=== PATIENT | female | born 1940 | race Caucasian/White ===

== ENCOUNTER 2017-08-22 09:12 | Emergency (ER) | payer MEDICARE, OTHER ==
[~2017-08-22] VITALS: Ht 165.1 cm; Wt 74.8 kg
[~2017-08-22 09:12] MED LIST: ACETAMINOPHEN325 M1 PO; ASPIR 8181 MG PO; CIPROFLOXACIN500 MG PO; ESTRADIOL0.5 MG PO; LEVOTHYROXINE112 MCG PO; VERAPAMIL HCL120 MG PO
[2017-08-22] MEDS ORDERED: POTASSIUM CHLO10 MEQ PO (09:31)
[2017-08-22] MEDS ORDERED: CLOPIDOGREL75 MG PO (09:32)
[2017-08-22] MEDS ORDERED: CHLORTHALIDONE25 MG PO (09:32)
[2017-08-22] MEDS ORDERED: ALLOPURINOL100 MG PO (09:33)
[2017-08-22] MEDS ORDERED: LIPITOR40 MG PO (12:27)
[2017-08-22] MEDS ORDERED: MECLIZINE HCL25 MG PO (12:27)
--- NOTE | 2017-08-22 22:15 | EKG ---
[facility] [address] [place], [place] [address] Signed Normal sinus rhythm Low voltage QRS Septal infarct , age undetermined Abnormal ECG No previous ECGs available Confirmed by JULIANN NORIEGA MD ([id number]) on 08/22/2017 10:14:54 PM Electronically Signed By: JULIANN NORIEGA MD 08/22/17 2215 PATIENT NAME: JAMEL CHRISTINE Electrocardiogram DATE OF : 38 PHYSICIAN: JULIANN NORIEGA MD REPORT #: [id number] REPORT IS CONFIDENTIAL AND NOT TO BE RELEASED WITHOUT AUTHORIZATION
== END 2017-08-22 13:01 | disposition home or self-care (01) ==
LOC: ED 09:12
DX: I67.9 Cerebrovascular disease, unspecified (principal); I10 Essential (primary) hypertension; E03.9 Hypothyroidism, unspecified; Z79.899 Other long term (current) drug therapy
CPT/HCPCS: 70450; 80053; 81001; 84484; 85025; 87077; 87088; 87186; 93005; 93010; 99284

== ENCOUNTER 2019-01-12 10:14 | Emergency (ER) | payer MEDICARE, OTHER ==
[~2019-01-12] VITALS: Ht 165.1 cm; Wt 68.0 kg
--- OUTSIDE RECORDS SUMMARY | ~2019-01-12 | XMS | Clinical Summary ---
Demographics + + + | Address | [address] | | | [address] | | | [place] [address] | + + + | Home Phone | | + + + | Preferred Language | Unknown | + + + | Marital Status | | + + + | Scientology Affiliation | Unknown | + + + | Race | Unknown | + + + | Ethnic Group | Unknown | + + + Author + + + | Author | [facility] [employer] (Historical as of | | | 11-17-18) | + + + | Organization | [facility] [employer] (Historical as of | | | 11-17-18) | + + + | Address | Unknown | + + + | Phone | Unavailable | + + + Support + + + + + | Name | Relationship | Address | Phone | + + + + + | Jamel Orona | ECON | [place], | | | | | [place] [address] | | + + + + + | Zuleyma Rizzo | ECON | | | | | | [place] | | | | | [phone] | | + + + + + Care Team Providers + +------+ + | Care Business Development Assistant Name | Role | Phone | + +------+ + | Reanna Bañuelos PA-C | PP | | + +------+ + Allergies No Known Allergies Current Medications + + +--------+---------+------+------+-------+ | Prescription | Sig. | Disp. | Refills | Star | End | Statu | | | | | | t | Date | s | | | | | | Date | | | + + +--------+---------+------+------+-------+ | levothyroxine | Take 75 mcg by mouth | | | 05 | | Activ | | (SYNTHROID) 75 MCG | daily. | | | 020 | | e | | tablet | | | | 15 | | | + + +--------+---------+------+------+-------+ | clopidogrel | Take 75 mg by mouth | | | 07 | | Activ | | (PLAVIX) 75 MG | daily. | | | 8 | | e | | tablet | | | | 15 | | | + + +--------+---------+------+------+-------+ | verapamil (VERELAN | Take by mouth | | | | | Activ | | PM) 120 MG 24 hr | nightly. | | | | | e | | capsule | | | | | | | + + +--------+---------+------+------+-------+ | colchicine 0.6 MG | Take 0.6 mg by mouth | | | | | Activ | | tablet | daily as needed. | | | | | e | + + +--------+---------+------+------+-------+ | potassium chloride | Take 1 tablet by | 60 | 11 | 04/0 | | Activ | | (K-DUR) 10 MEQ | mouth daily. | tablet | | /20 | | e | | tablet | | | | 17 | | | + + +--------+---------+------+------+-------+ | allopurinol | Take 1 tablet by | 90 | 3 | 12/2 | | Activ | | (ZYLOPRIM) 100 MG | mouth daily. | tablet | | 20 | | e | | tabletIndications: | | | | 17 | | | | CKD (chronic kidney | | | | | | | | disease), stage III | | | | | | | | (HCC), Idiopathic | | | | | | | | chronic gout of | | | | | | | | right foot without | | | | | | | | tophus | | | | | | | + + +--------+---------+------+------+-------+ | atorvastatin | | | | 10/1 | | Activ | | (LIPITOR) 40 MG | | | | 7/20 | | e | | tablet | | | | 18 | | | + + +--------+---------+------+------+-------+ | chlorthalidone | Take 1 tablet by | 90 | 3 | 12/0 | | Activ | | (HYGROTEN) 25 MG | mouth daily. | tablet | | 5/20 | | e | | tabletIndications: | | | | 18 | | | | Benign essential | | | | | | | | hypertension, Stage | | | | | | | | 3 chronic kidney | | | | | | | | disease (HCC) | | | | | | | + + +--------+---------+------+------+-------+ Active Problems + + + | Problem | Noted Date | + + + | Bilateral leg edema | 03/07/2018 | + + + | Idiopathic chronic gout of right foot | 01/08/2016 | + + + | Essential hypertension, benign | 10/30/2014 | + + + | CKD (chronic kidney disease), stage III | 10/30/2014 | + + + Resolved Problems + + + + | Problem | Noted | Resolved | | | Date | Date | + + + + | Hypokalemia | 10/31/19 | | | | 15 | 6 | + + + + Social History + +-------+ +--------+------+ | Tobacco Use | Types | Packs/Day | Years | Date | | | | | Used | | + +-------+ +--------+------+ | Never Smoker | | | | | + +-------+ +--------+------+ + + +---------+ + | Alcohol Use | Drinks/We | oz/Week | Comments | | | ek | | | + + +---------+ + | No | 0 | 0.0 | | | | Standard | | | | | drinks or | | | | | | | | | | equivalen | | | | | t | | | + + +---------+ + + + + | Sex Assigned at | Date Recorded | | | | + + + | Not on file | | + + + Last Filed Vital Signs + + + + | Vital Sign | Reading | Time Taken | + + + + | Blood Pressure | 134/74 | 03/07/2018 10:01 AM PST | + + + + | Pulse | 80 | 03/07/2018 10:01 AM PST | + + + + | Temperature | 36.4 C (97.5 F) | 08/09/2017 1:31 PM PDT | + + + + | Respiratory Rate | - | - | + + + + | Oxygen Saturation | 98% | 03/07/2018 10:01 AM PST | + + + + | Inhaled Oxygen | - | - | | Concentration | | | + + + + | Weight | 78.3 kg (172 lb 11.2 | 03/07/2018 10:01 AM PST | | | oz) | | + + + + | Height | 165.1 cm (5' 5") | 03/07/2018 10:01 AM PST | + + + + | Body Mass Index | 28.74 | 03/07/2018 10:01 AM PST | + + + + Plan of Treatment + + + + + | Health Maintenance | Due Date | Last Done | Comments | + + + + + | Vaccine: | | | | | Dtap/Tdap/Td (1 - | 9 | | | | Tdap) | | | | + + + + + | Vaccine: Zoster (1 | | | | | of 2) | 0 | | | + + + + + | DEXA SCAN SCREENING | | | | | | 5 | | | + + + + + | Vaccine: | | | | | Pneumococcal 65+ | 5 | | | | Low/Medium Risk (1 | | | | | of 2 - PCV13) | | | | + + + + + | Vaccine: Influenza | | | | | (#1) | 9 | | | + + + + + Results Not on filefrom Last 3 Months Insurance + +--------+ +------+-------+ + | Payer | Benefi | Subscriber | Type | Phone | Address | | | t Plan | ID | | | | | | / | | | | | | | Group | | | | | + +--------+ +------+-------+ + | MEDICARE | MEDICA | [id number] | | | [address] | | | RE | | | | [place] [phone] | | | IP-OP | | | | | + +--------+ +------+-------+ + | COMMERCIAL OTHER | COMMER | [id number] | | | | | | CIAL | | | | | | | GENERI | | | | | | | C PLAN | | | | | + +--------+ +------+-------+ + + +--------+ +--------+ + + | Guarantor Name | Accoun | Relation to | Date | Phone | Billing Address | | | t Type | Patient | of | | | | | | | | | | + +--------+ +--------+ + + | JAMEL ORONA | Person | Self [birth year] Home: | [address] | | | al[birth year]Fam | | [phone] | [phone] | [address] | | | [place] | | | [phone] | [place] | | | | | | | [phone] | + +--------+ +--------+ + +
--- OUTSIDE RECORDS SUMMARY | ~2019-01-12 | XMS | Clinical Summary ---
Demographics + + + | Address | [address] | | | [address] | | | [place] [address] | + + + | Home Phone | | + + + | Preferred Language | Unknown | + + + | Marital Status | | + + + | Religion Affiliation | Unknown | + + + | Race | Unknown | + + + | Ethnic Group | Unknown | + + + Author + + + | Author | [facility] [employer] (Historical as of | | | 11-17-18) | + + + | Organization | [facility] [employer] (Historical as of | | | 11-17-18) | + + + | Address | Unknown | + + + | Phone | Unavailable | + + + Support + + + + + | Name | Relationship | Address | Phone | + + + + + | Jamel Orona | ECON | [place], | | | | | [place] [address] | | + + + + + | Zuleyma Rizzo | ECON | | | | | | [place] | | | | | [phone] | | + + + + + Care Team Providers + +------+ + | Care Die Repairer Trimmer Dies Name | Role | Phone | + [...] +------+-------+ + | MEDICARE | MEDICA | [id number] | | | [address] | | | RE | | | | [place] [phone] | | | IP-OP | | | | | + +--------+ +------+-------+ + | COMMERCIAL OTHER | COMMER | [id number] | | | | | | CIAL [...] Self | [birth year] | Home: | [address] | | | al/Fam | | 1941 | [phone] | [address] | | | [place] | | | [phone] | [place] | | | | | | | [phone] | + +--------+ +--------+ + +
[~2019-01-12 10:14] MED LIST changes: +ALLOPURINOL100 MG PO; +CHLORTHALIDONE25 MG PO; +CLOPIDOGREL75 MG PO; +LIPITOR40 MG PO; +MECLIZINE HCL25 MG PO; +POTASSIUM CHLO10 MEQ PO
[2019-01-12] MEDS ORDERED: ATORVASTATIN CA40 MG PO (10:50)
== END 2019-01-12 12:45 | disposition home or self-care (01) ==
LOC: ED 10:14
DX: S93.602A Unspecified sprain of left foot, initial encounter (principal); I10 Essential (primary) hypertension; E03.9 Hypothyroidism, unspecified; I25.2 Old myocardial infarction; Z79.02 Long term (current) use of antithrombotics/antiplatelets; Z79.899 Other long term (current) drug therapy; X50.1XXA Overexertion from prolonged static or awkward postures, initial encounter
CPT/HCPCS: 73630; 99283-25

== ENCOUNTER 2020-01-14 10:32 | Emergency (ER) | payer MEDICARE, OTHER ==
[~2020-01-14] VITALS: Ht 165.1 cm; Wt 68.0 kg
[~2020-01-14 10:32] MED LIST changes: +ATORVASTATIN CA40 MG PO
== END 2020-01-14 11:45 | disposition home or self-care (01) ==
LOC: ED 10:32
DX: S92.501A Displaced unspecified fracture of right lesser toe(s), initial encounter for closed fracture (principal); W22.8XXA Striking against or struck by other objects, initial encounter; I10 Essential (primary) hypertension; E03.9 Hypothyroidism, unspecified; I25.2 Old myocardial infarction; Z79.899 Other long term (current) drug therapy
CPT/HCPCS: 73630; 99283-25

== ENCOUNTER 2020-09-20 14:51 | Emergency (ER) | payer MEDICARE ==
[~2020-09-20] VITALS: Ht 165.1 cm; Wt 72.6 kg
[2020-09-20] MEDS ORDERED: ASPIRIN81 MG PO (16:52)
== END 2020-09-20 17:03 | disposition home or self-care (01) ==
LOC: ED 14:51
DX: R21 Rash and other nonspecific skin eruption (principal); I10 Essential (primary) hypertension; E03.9 Hypothyroidism, unspecified; I25.2 Old myocardial infarction; Z79.899 Other long term (current) drug therapy
CPT/HCPCS: 99282

== ENCOUNTER 2020-10-08 18:16 | Emergency (ER) | payer MEDICARE ==
[~2020-10-08] VITALS: Ht 165.1 cm; Wt 72.6 kg
[~2020-10-08 18:16] MED LIST changes: +ASPIRIN81 MG PO
[2020-10-08] MEDS ORDERED: FUROSEMIDE20 MG PO (18:53)
[2020-10-08] MEDS ORDERED: CEPHALEXIN500 MG PO (20:19)
== END 2020-10-08 20:30 | disposition home or self-care (01) ==
LOC: ED 18:16
DX: L03.116 Cellulitis of left lower limb (principal); I10 Essential (primary) hypertension; E03.9 Hypothyroidism, unspecified; I25.2 Old myocardial infarction; I12.9 Hypertensive chronic kidney disease with stage 1 through stage 4 chronic kidney disease, or unspecified chronic kidney disease; N18.30 Chronic kidney disease, stage 3 unspecified; Z79.899 Other long term (current) drug therapy
CPT/HCPCS: 99283

== ENCOUNTER 2021-02-14 21:57 | Emergency (ER) | payer MEDICARE ==
[~2021-02-14] VITALS: Ht 165.1 cm; Wt 72.6 kg
[~2021-02-14 21:57] MED LIST changes: +CEPHALEXIN500 MG PO; +FUROSEMIDE20 MG PO
== END 2021-02-15 02:01 | disposition home or self-care (01) ==
LOC: ED 21:57
DX: R07.89 Other chest pain (principal); R22.0 Localized swelling, mass and lump, head; I25.2 Old myocardial infarction; I12.9 Hypertensive chronic kidney disease with stage 1 through stage 4 chronic kidney disease, or unspecified chronic kidney disease; N18.30 Chronic kidney disease, stage 3 unspecified; E89.0 Postprocedural hypothyroidism; Z90.710 Acquired absence of both cervix and uterus; Z90.89 Acquired absence of other organs; Z79.899 Other long term (current) drug therapy
CPT/HCPCS: 70450; 71250; 72125; 80053; 85025; 85610; 85730; 99284-25

== ENCOUNTER 2021-10-23 09:55 | Emergency (ER) | payer MEDICARE ==
[~2021-10-23] VITALS: Ht 165.1 cm; Wt 72.6 kg
--- OUTSIDE RECORDS SUMMARY | 2021-10-23 10:04 | XMS ---
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 EPatrick VISIT COUNT (12 MO.) 2 QUINTIN Khan TOTAL 2 NOTE: Visits indicate total known visits. 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
[2021-10-23] MEDS ORDERED: AMOXICILLIN500 MG PO (10:30)
[2021-10-23] MEDS ORDERED: POTASSIUM CHLO10 ME1 PO (10:38)
[2021-10-23] MEDS ORDERED: VERAPAMIL ER120 M1 PO (11:07)
--- NOTE | 2021-10-23 17:42 | EKG ---
[facility] [address] [place] [address] Signed Normal sinus rhythm Low voltage QRS Possible Inferior infarct , age undetermined Cannot rule out Anteroseptal infarct (cited on or before 22-AUG-2017) Abnormal ECG When compared with ECG of 22-AUG-2017 09:25, Questionable change in initial forces of Anterior leads Nonspecific T wave abnormality now evident in Anterolateral leads Confirmed by JULIANN NORIEGA MD ([id number]) on 10/23/2021 5:42:09 PM Electronically Signed By: JULIANN NORIEGA MD 10/23/211741 PATIENT NAME: JAMEL CHRISTINE Electrocardiogram DATE OF : 38 PHYSICIAN: JULIANN NORIEGA MD REPORT #: [id number] REPORT IS CONFIDENTIAL AND NOT TO BE RELEASED WITHOUT AUTHORIZATION
== END 2021-10-23 13:27 | disposition home or self-care (01) ==
LOC: ED 09:55
DX: T42.4X1A Poisoning by benzodiazepines, accidental (unintentional), initial encounter (principal); R41.82 Altered mental status, unspecified; E03.9 Hypothyroidism, unspecified; I25.2 Old myocardial infarction; N18.30 Chronic kidney disease, stage 3 unspecified; Z20.822 Contact with and (suspected) exposure to COVID-19; I12.9 Hypertensive chronic kidney disease with stage 1 through stage 4 chronic kidney disease, or unspecified chronic kidney disease; Z79.899 Other long term (current) drug therapy; Z79.82 Long term (current) use of aspirin
CPT/HCPCS: 36415; 70450; 71045; 80053; 81001; 84484; 85025; 85610; 85730; 87502; 93005; 93010; 99284-25; C9803; U0003

== ENCOUNTER 2021-12-09 07:00 | Day surgery (SDC) | payer MEDICARE ==
[~2021-12-09] VITALS: Ht 165.1 cm; Wt 70.2 kg
[~2021-12-09 07:00] MED LIST changes: +AMOXICILLIN500 MG PO; +POTASSIUM CHLO10 ME1 PO; +VERAPAMIL ER120 M1 PO
--- NOTE | 2021-12-09 08:35 | NUR ---
PT ALERT, ORIENTED AND SUPPORTED BY HER DAUGHTER. GAVE ENCOURAGEMENT AND BLESSING. WILL FOLLOW
--- NOTE | 2021-12-09 09:15 | NUR ---
12/09/21 0915 Sheets,Leah 0902 PT ARRIVED TO PACU, RESP EVEN AND SHALLOW. RN ENCOURAGES DEEP BREATHING OFF AND ON. PT REACTIVE TO TACTILE STIMULI AND ABLE TO FOLLOW COMMANDS. PT FALLS RIGHT BACK TO SLEEP. VSS.
--- NOTE | 2021-12-10 07:48 | OR ---
[facility] [address] [place], [place] [address] Signed DATE OF OPERATION: 12/09/2021 SURGEON: Michelle Murrieta MD PREOPERATIVE DIAGNOSIS: Change in bowel habits with increasing constipation/hard stool. POSTOPERATIVE DIAGNOSIS: Minimal internal hemorrhoids. PROCEDURE: Colonoscopy without biopsy. ESTIMATED BLOOD LOSS: None. INDICATIONS: Jamel is an 81-year-old female, generally fairly healthy. She still has good muscle mass, good functional status. Her memory is not the best. She has actually never had a colonoscopy. There is no family history of colon cancer or polyps. She told me her upper teeth were bothering her quite a bit and she could not eat well. She ended up with a change in bowel habits, a small hard dark pebble like stool. Eventually, she had all her upper teeth pulled and now has dentures. She is able to eat much better. She told me the stool has corrected itself. She had been to her primary care provider. They decided to have her come for a colonoscopy due to the change in bowel habits. Her daughter always comes to help because of Jamel's poor memory. In the office, I gave them a pamphlet on colonoscopy. We had reviewed the nature of the test. They understand there is risk including, but not limited to gas bloating, crampy abdominal pain, bleeding, perforation requiring surgery, and missed diagnosis. We also reviewed the need for IV conscious sedation. She had expressed understanding and wished to proceed. PROCEDURE NOTE: Jaeml was taken into our endoscopy suite and placed in the left lateral decubitus position. We gave her 1 mg of Versed and 50 mcg of fentanyl and she actually quit breathing without stimulation. We started our procedure. A digital rectal exam was unremarkable. She had good sphincter tone. There were no masses. No external hemorrhoids. The adult colonoscope had been introduced and advanced under direct visualization of the camera. We made our way up to 5 mg of Versed and 100 mcg of fentanyl. Without stimulation, she was not breathing and with stimulation she was awake Electronically Signed By: MICHELLE MURRIETA MD 12/10/21 0748 PATIENT NAME: JAMEL CHRISTINE OPERATIVE REPORT DATE OF : 38 REPORT #: [id number] PHYSICIAN: MICHELLE MURRIETA MD PCP: RIGOBERTO ORELLANA PAC REPORT IS CONFIDENTIAL AND NOT TO BE RELEASED WITHOUT AUTHORIZATION [facility] [address] [place] [id number] Signed and moaning and talking to us. Therefore, we asked one of our anesthesia providers to come and help us with increased monitoring sedation with propofol. We also noticed somewhat frequent PVCs. With the addition of the propofol then, she relaxed very nicely and we were able to advance the scope without resistance right up to the cecum itself. PVCs as well. Her prep was quite excellent. We could easily see the appendiceal orifice and the ileocecal valve. The scope was then slowly withdrawn. We found no pathology throughout the entire colon. There were no polyps. No diverticulosis. No AVMs. The rectum was unremarkable. Upon retroflexion of the scope, she has just small internal hemorrhoid columns. After this, the gas was suctioned out and the colonoscope removed. Jamel tolerated the procedure quite well with the addition of the propofol. RECOMMENDATIONS: Jamel can follow up as needed. MD BIRDIE Fitzgerald/[place] /[id number] cc: SILAS Stout MD Copies: RIGOBERTO ORELLANA ANDREW L MD ~ Electronically Signed By: MICHELLE MURRIETA MD 12/10/21 0748 PATIENT NAME: JAMEL CHRISTINE OPERATIVE REPORT DATE OF : 38 REPORT #: [id number] PHYSICIAN: MICHELLE MURRIETA MD PCP: RIGOBERTO ORELLANA REPORT IS CONFIDENTIAL AND NOT TO BE RELEASED WITHOUT AUTHORIZATION
== END 2021-12-09 10:17 | disposition home or self-care (01) ==
LOC: DS 07:00
PROVIDERS: ATTEND Colon & Rectal Surgery
PROC: 0DJD8ZZ Inspection of Lower Intestinal Tract, Via Natural or Artificial Opening Endoscopic (ICD-10-PCS; principal; 2021-12-09 08:15)
DX: K59.00 Constipation, unspecified (principal); K64.8 Other hemorrhoids; I12.9 Hypertensive chronic kidney disease with stage 1 through stage 4 chronic kidney disease, or unspecified chronic kidney disease; N18.30 Chronic kidney disease, stage 3 unspecified; M10.9 Gout, unspecified; I25.10 Atherosclerotic heart disease of native coronary artery without angina pectoris; Z90.710 Acquired absence of both cervix and uterus; E89.0 Postprocedural hypothyroidism; Z91.048 Other nonmedicinal substance allergy status; Z86.73 Personal history of transient ischemic attack (TIA), and cerebral infarction without residual deficits
CPT/HCPCS: 00811; 99153; G0500; J2001; J2250; J2704; J3010; J7121

== ENCOUNTER 2022-04-20 10:30 | Day surgery (SDC) | payer MEDICARE ==
[~2022-04-20] VITALS: Ht 165.1 cm; Wt 67.3 kg
[~2022-04-20 10:30] MED LIST changes: +PLAVIX75 MG PO
--- NOTE | 2022-04-20 12:30 | NUR ---
04/20/22 1230 Mary Ann Cuevas [address]PATIENT ARRIVES TO PACU AWAKE BUT DROWSY. RESTING IN PRONE POSITION, WHICH IS POSITION OF COMFORT PER PATIENT. RESP EVEN AND UNLABORED,ROOM AIR SATS 100%.DENIES PAIN OR NAUSEA.
== END 2022-04-20 13:00 | disposition home or self-care (01) ==
LOC: OPS 10:30 → DS 10:30 → OPS 12:00 → DS 12:00 → OPS 13:00
PROVIDERS: ATTEND Specialist
PROC: 079T3ZX Drainage of Bone Marrow, Percutaneous Approach, Diagnostic (ICD-10-PCS; principal; 2022-04-20 12:00)
DX: D61.818 Other pancytopenia (principal)
CPT/HCPCS: 01112; 36415; 80053; 83615; 85025; 85060; J2704; J7121

== ENCOUNTER → 2022-10-20 | Emergency (ER) | payer MEDICARE ==
[~2022-10-20] VITALS: Ht 165.1 cm; Wt 67.1 kg
--- OUTSIDE RECORDS SUMMARY | ~2022-10-20 | XMS | Continuity of Care Document ---
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 Encounters No information. Functional Status No information. Immunizations No information. Medications + + + + | date | description | facility | + + + + | 2021-10-24 00:00 | ALLOPURINOL | [facility] | + + + + | 2021-12-09 00:00 | ALLOPURINOL | [facility] | + + + + | 2022-04-26 00:00 | ALLOPURINOL | [facility] | + + + + | 2021-10-24 00:00 | CHLORTHALIDONE | [facility] | + + + + | 2021-12-09 00:00 | CHLORTHALIDONE | [facility] | + + + + | 2022-04-26 00:00 | CHLORTHALIDONE | [facility] | + + + + | 2021-10-24 00:00 | ESTRADIOL | [facility] | + + + + | 2021-12-09 00:00 | ESTRADIOL | [facility] | + + + + | 2022-04-26 00:00 | ESTRADIOL | [facility] | + + + + | 2021-10-24 00:00 | AMOXICILLIN | [facility] | + + + + | 2021-10-24 00:00 | ASPIRIN | [facility] | + + + + | 2021-12-09 00:00 | ASPIRIN | [facility] | + + + + | 2022-04-26 00:00 | ASPIRIN | [facility] | + + + + | 2020-10-08 00:00 | CEPHALEXIN | [facility] | + + + + | 2021-10-24 00:00 | CIPROFLOXACIN HCL | [facility] | + + + + | 2021-12-09 00:00 | CIPROFLOXACIN HCL | [facility] | + + + + | 2022-04-26 00:00 | CIPROFLOXACIN HCL | [facility] | + + + + | 2021-10-24 00:00 | CLOPIDOGREL BISULFATE | [facility] | + + + + | 2021-12-09 00:00 | CLOPIDOGREL BISULFATE | [facility] | + + + + | 2022-04-26 00:00 | CLOPIDOGREL BISULFATE | [facility] | + + + + | 2021-10-24 00:00 | FUROSEMIDE | [facility] | + + + + | 2021-12-09 00:00 | FUROSEMIDE | [facility] | + + + + | 2022-04-26 00:00 | FUROSEMIDE | [facility] | + + + + | 2021-10-24 00:00 | POTASSIUM CHLORIDE | [facility] | + + + + | 2021-12-09 00:00 | POTASSIUM CHLORIDE | [facility] | + + + + | 2022-04-26 00:00 | POTASSIUM CHLORIDE | [facility] | + + + + | 2021-10-24 00:00 | ACETAMINOPHEN | [facility] | + + + + | 2021-12-09 00:00 | ACETAMINOPHEN | [facility] | + + + + | 2022-04-26 00:00 | ACETAMINOPHEN | [facility] | + + + + | 2021-10-24 00:00 | ASPIRIN | [facility] | + + + + | 2021-12-09 00:00 | ASPIRIN | [facility] | + + + + | 2022-04-26 00:00 | ASPIRIN | [facility] | + + + + | 2021-10-24 00:00 | ATORVASTATIN CALCIUM | [facility] | + + + + | 2021-12-09 00:00 | ATORVASTATIN CALCIUM | [facility] | + + + + | 2022-04-26 00:00 | ATORVASTATIN CALCIUM | [facility] | + + + + | 2017-08-22 00:00 | ATORVASTATIN | [facility] | + + + + | 2021-10-24 00:00 | POTASSIUM CHLORIDE | [facility] | + + + + | 2021-12-09 00:00 | POTASSIUM CHLORIDE | [facility] | + + + + | 2021-10-24 00:00 | VERAPAMIL HCL | [facility] | + + + + | 2021-12-09 00:00 | VERAPAMIL HCL | [facility] | + + + + | 2021-10-24 00:00 | LEVOTHYROXINE SODIUM | [facility] | + + + + | 2021-12-09 00:00 | LEVOTHYROXINE SODIUM | [facility] | + + + + | 2022-04-26 00:00 | LEVOTHYROXINE SODIUM | [facility] | + + + + | 2017-08-22 00:00 | MECLIZINE HCL | [facility] | + + + + Problems + + + + | date | description | facility | + + + + | 2017-08-22 00:00 | Cerebrovascular disease | [facility] | + + + + | 2017-08-22 00:00 | Vertigo | [facility] | + + + + | 2020-01-14 00:00 | Fracture of phalanx of toe | [facility] | | | | | + + + + | 2020-09-20 00:00 | Rash of both feet | [facility] | + + + + | 2020-10-08 00:00 | Cellulitis of left foot | [facility] | + + + + | 2021-02-15 00:00 | Left-sided chest wall pain | [facility] | | | | | + + + + | 2021-02-15 00:00 | Fall | [facility] | + + + + | 2021-10-23 00:00 | Pre-syncope | [facility] | + + + + | 2021-10-23 00:00 | Accidental drug ingestion | [facility] | + + + + Procedures + + + + | date | description | facility | + + + + | 2022-04-20 00:00 | DRAINAGE OF BONE MARROW, | [facility] | | | PERCUTANEOUS APPROACH, | | | | DIAGNOSTIC | | + + + + | 2021-12-09 00:00 | Colonoscopy | [facility] | + + + + | 2021-12-09 00:00 | Colonoscopy | [facility] | + + + + Results/Labs +--------+--------+ +---------+--------+---------+ | test | date | facility | value | unit | notes | +--------+--------+ +---------+--------+---------+ + + | Result panel 1 | + + + + + + + + + | | 2021-10-23 | [facility] | NEGATIVE | (missing) | (missing) | | [facility]unavailable [facility]:20 [facility] | | | + + + + + + + + + | Result panel 2 | + + + + + + + + + | | 2021-10-23 | [facility] | NEGATIVE | (missing) | (missing) | | (unavailable | 10:20 [facility] | | | | + + + + + + + + + | Result panel 3 | + + + + + + + + + | | 2021-10-23 | [facility] | NEGATIVE | (missing) | (missing) | | (unavailable | 10:20 [facility] | | | | + + + + + + + + + | Result panel 4 | + + + + + + + + + | | 2021-10-23 | [facility] | NEGATIVE | (missing) | (missing) | | (unavailable [facility] 10:20 [facility] | | | + + + + + + + + + | Result panel 5 | + + + + + +-------+ + + | | 2021-10-23 | [facility] | 2.8 | (missing) | (missing) | | (unavailable | 10:20 [facility] | | | + + + +-------+ + + + + | Result panel 6 | + + + + + +--------+ + + | | 2021-10-23 | [facility] | 3.72 | (missing) | (missing) | | (unavailable | 10:20 [facility] | | | + + + +--------+ + + + + | Result panel 7 | + + + + + +--------+ + + | | 2021-10-23 | [facility] | 11.3 | (missing) | (missing) | | (unavailable | 10:20 [facility] | | | + + + +--------+ + + + + | Result panel 8 | + + + + + +--------+ + + | | 2021-10-23 | [facility] | 34.3 | (missing) | (missing) | | (unavailable | 10:20 [facility] | | | + + + +--------+ + + + + | Result panel 9 | + + + + + +--------+ + + | | 2021-10-23 | [facility] | 92.2 | (missing) | (missing) | | (unavailable | 10:20 [facility] | | | + + + +--------+ + + + + | Result panel 10 | + + + + + +--------+ + + | | 2021-10-23 | [facility] | 30.3 | (missing) | (missing) | | (unavailable | 10:20 [facility] | | | + + + +--------+ + + + + | Result panel 11 | + + + + + +--------+ + + | | 2021-10-23 | [facility] | 32.9 | (missing) | (missing) | | (unavailable [facility] 10:20 [facility] | | | + + + +--------+ + + + + | Result panel 12 | + + + + + +--------+ + + | | 2021-10-23 | [facility] | 15.7 | (missing) | (missing) | | (unavailable | 10:20 [facility] | | | + + + +--------+ + + + + | Result panel 13 | + + + + + +------+ + + | | 2021-10-23 | [facility] | 63 | (missing) | (missing) | | (unavailable | 10:20 [facility] | | | + + + +------+ + + + + | Result panel 14 | + + + + + +--------+ + + | | 2021-10-23 | [facility] | 41.5 | (missing) | (missing) | | (unavailable | 10:20 [facility] | | | + + + +--------+ + + + + | Result panel 15 | + + + + + +--------+ + + | | 2021-10-23 | [facility] | 28.0 | (missing) | (missing) | | (unavailable | 10:20 [facility] | | | + + + +--------+ + + + + | Result panel 16 | + + + + + +--------+ + + | | 2021-10-23 | [facility] | 28.6 | (missing) | (missing) | | (unavailable | 10:20 [facility] | | | + + + +--------+ + + + + | Result panel 17 | + + + + + +-------+ + + | | 2021-10-23 | [facility] | 0.8 | (missing) | (missing) | | (unavailable | 10:20 [facility] | | | + + + +-------+ + + + + | Result panel 18 | + + + + + +-------+ + + | | 2021-10-23 | [facility] | 1.1 | (missing) | (missing) | | (unavailable | 10:20 [facility] | | | + + + +-------+ + + + + | Result panel 19 | + + + + + +--------+ + + | | 2021-10-23 | [facility] | 13.0 | (missing) | (missing) | | (unavailable | 10:20 [facility] | | | + + + +--------+ + + + + | Result panel 20 | + + + + + +--------+ + + | | 2021-10-23 | [facility] | 1.00 | (missing) | (missing) | | (unavailable | 10:20 [facility] | | | + + + +--------+ + + + + | Result panel 21 | + + + + + +--------+ + + | | 2021-10-23 | [facility] | 29.4 | (missing) | (missing) | | (unavailable | 10:20 [facility] | | | + + + +--------+ + + + + | Result panel 22 | + + + + + +------+---------+ + | | 2021-10-23 | [facility] | 83 | mg/dL | (missing) | | (unavailable | 10:20 [facility] | | | + + + +------+---------+ + + + | Result panel 23 | + + + + + +------+---------+ + | | 2021-10-23 | [facility] | 20 | mg/dL | (missing) | | (unavailable | 10:20 [facility] | | | + + + +------+---------+ + + + | Result panel 24 | + + + + + +--------+---------+ + | | 2021-10-23 | [facility] | 1.33 | mg/dL | (missing) | | (unavailable | 10:20 [facility] | | | + + + +--------+---------+ + + + | Result panel 25 | + + + + + +------+ + + | | 2021-10-23 | [facility] | 40 | (missing) | (missing) | | (unavailable | 10:20 [facility] | | | + + + +------+ + + + + | Result panel 26 | + + + + + +---------+ + + | | 2021-10-23 | [facility] | 15.03 | (missing) | (missing) | | (unavailable | 10:20 [facility] | | | + + + +---------+ + + + + | Result panel 27 | + + + + + +-------+ + + | | 2021-10-23 | [facility] | 145 | (missing) | (missing) | | (unavailable | 10:20 [facility] | | | + + + +-------+ + + + + | Result panel 28 | + + + + + +-------+ + + | | 2021-10-23 | [facility] | 3.8 | (missing) | (missing) | | (unavailable | 10:20 [facility] | | | + + + +-------+ + + + + | Result panel 29 | + + + + + +-------+ + + | | 2021-10-23 | [facility] | 106 | (missing) | (missing) | | (unavailable | 10:20 [facility] | | | + + + +-------+ + + + + | Result panel 30 | + + + + + +------+ + + | | 2021-10-23 | [facility] | 28 | (missing) | (missing) | | (unavailable | 10:20 [facility] | | | + + + +------+ + + + + | Result panel 31 | + + + + + +--------+ + + | | 2021-10-23 | [facility] | 14.8 | (missing) | (missing) | | (unavailable | 10:20 [facility] | | | + + + +--------+ + + + + | Result panel 32 | + + + + + +-------+---------+ + | | 2021-10-23 | [facility] | 8.5 | mg/dL | (missing) | | (unavailable | 10:20 [facility] | | | + + + +-------+---------+ + + + | Result panel 33 | + + + + + +-------+ + + | | 2021-10-23 | [facility] | 6.4 | (missing) | (missing) | | (unavailable | 10:20 [facility] | | | + + + +-------+ + + + + | Result panel 34 | + + + + + +-------+ + + | | 2021-10-23 | [facility] | 3.4 | (missing) | (missing) | | (unavailable | 10:20 [facility] | | | + + + +-------+ + + + + | Result panel 35 | + + + + + +-------+ + + | | 2021-10-23 | [facility] | 3.0 | (missing) | (missing) | | (unavailable | 10:20 [facility] | | | + + + +-------+ + + + + | Result panel 36 | + + + + + +--------+ + + | | 2021-10-23 | [facility] | 1.13 | (missing) | (missing) | | (unavailable | 10:20 [facility] | | | + + + +--------+ + + + + | Result panel 37 | + + + + + +-------+ + + | | 2021-10-23 | [facility] | 0.6 | (missing) | (missing) | | (unavailable | 10:20 [facility] | | | + + + +-------+ + + + + | Result panel 38 | + + + + + +------+ + + | | 2021-10-23 | [facility] | 19 | (missing) | (missing) | | (unavailable | 10:20 [facility] | | | + + + +------+ + + + + | Result panel 39 | + + + + + +------+ + + | | 2021-10-23 | [facility] | 12 | (missing) | (missing) | | (unavailable | 10:20 [facility] | | | + + + +------+ + + + + | Result panel 40 | + + + + + +------+ + + | | 2021-10-23 | [facility] | 82 | (missing) | (missing) | | (unavailable | 10:20 [facility] | | | + + + +------+ + + + + | Result panel 41 | + + + + + +--------+ + + | | 2021-10-23 | [facility] | 15.8 | (missing) | (missing) | | (unavailable | 10:20 [facility] | | | + + + +--------+ + + + + | Result panel 42 | + + + + + + + + + | | 2021-10-23 | [facility] | NEGATIVE | (missing) | (missing) | | (unavailable | 11:10 [facility] | | | + + + + + + + + + | Result panel 43 | + + + + + + + + + | | 2021-10-23 | [facility] | NEGATIVE | (missing) | (missing) | | (unavailable | 11:10 [facility] | | | + + + + + + + + + | Result panel 44 | + + + + + + + + + | | 2021-10-23 | [facility] | NEGATIVE | (missing) | (missing) | | (unavailable | 11:10 [facility] | | | + + + + + + + + + | Result panel 45 | + + + + + + + + + | | 2021-10-23 | [facility] | NEGATIVE | (missing) | (missing) | | (unavailable | 11:10 [facility] | | | + + + + + + + + + | Result panel 46 | + + + + + + + + + | | 2021-10-23 | [facility] | YELLOW | (missing) | (missing) | | (unavailable | 11:10 [facility] | | | + + + + + + + + + | Result panel 47 | + + + + + +---------+ + + | | 2021-10-23 | [facility] | CLEAR | (missing) | (missing) | | (unavailable | 11:10 [facility] | | | + + + +---------+ + + + + | Result panel 48 | + + + + + + + + + | | 2021-10-23 | [facility] | NEGATIVE | (missing) | (missing) | | (unavailable | 11:10 [facility] | | | + + + + + + + + + | Result panel 49 | + + + + + + + + + | | 2021-10-23 | [facility] | NEGATIVE | (missing) | (missing) | | (unavailable | 11:10 [facility] | | | + + + + + + + + + | Result panel 50 | + + + + + + + + + | | 2021-10-23 | [facility] | NEGATIVE | (missing) | (missing) | | (unavailable | 11:10 [facility] | | | + + + + + + + + + | Result panel 51 | + + + + + +---------+ + + | | 2021-10-23 | [facility] | 1.010 | (missing) | (missing) | | (unavailable | 11:10 [facility] | | | + + + +---------+ + + + + | Result panel 52 | + + + + + +---------+ + + | | 2021-10-23 | [facility] | SMALL | (missing) | (missing) | | (unavailable | 11:10 [facility] | | | + + + +---------+ + + + + | Result panel 53 | + + + + + +-------+ + + | | 2021-10-23 | [facility] | 7.5 | (missing) | (missing) | | (unavailable | 11:10 [facility] | | | + + + +-------+ + + + + | Result panel 54 | + + + + + + + + + | | 2021-10-23 | [facility] | NEGATIVE | (missing) | (missing) | | (unavailable | 11:10 [facility] | | | + + + + + + + + + | Result panel 55 | + + + + + + + + + | | 2021-10-23 | [facility] | NORMAL | (missing) | (missing) | | (unavailable | 11:10 [facility] | | | + + + + + + + + + | Result panel 56 | + + + + + + + + + | | 2021-10-23 | [facility] | NEGATIVE | (missing) | (missing) | | (unavailable | 11:10 [facility] | | | + + + + + + + + + | Result panel 57 | + + + + + + + + + | | 2021-10-23 | [facility] | NEGATIVE | (missing) | (missing) | | (unavailable | 11:10 [facility] | | | + + + + + + + + + | Result panel 58 | + + + + + + + + + | | 2021-10-23 | [facility] | NEGATIVE | (missing) | (missing) | | (unavailable | 11:10 [facility] | | | + + + + + + + + + | Result panel 59 | + + + + + + + + + | | 2021-10-23 | [facility] | NEGATIVE | (missing) | (missing) | | (unavailable | 11:10 [facility] | | | + + + + + + + + + | Result panel 60 | + + + + + + + + + | | 2021-10-23 | [facility] | NEGATIVE | (missing) | (missing) | | (unavailable | 11:10 [facility] | | | + + + + + + + + + | Result panel 61 | + + + + + + + + + | | 2021-10-23 | [facility] | NEGATIVE | (missing) | (missing) | | (unavailable | 11:10 [facility] | | | + + + + + + + + + | Result panel 62 | + + + + + + + + + | | 2021-10-23 | [facility] | NEGATIVE | (missing) | (missing) | | (unavailable | 11:10 [facility] | | | + + + + + + + + + | Result panel 63 | + + + + + + + + + | | 2021-10-23 | [facility] | NEGATIVE | (missing) | (missing) | | (unavailable | 11:10 [facility] | | | + + + + + + + + + | Result panel 64 | + + + + + + + + + | | 2021-10-23 | [facility] | NEGATIVE | (missing) | (missing) | | (unavailable | 11:10 [facility] | | | + + + + + + + + + | Result panel 65 | + + + + + + + + + | | 2021-10-23 | [facility] | NEGATIVE | (missing) | (missing) | | (unavailable | 11:10 [facility] | | | + + + + + + + + + | Result panel 66 | + + + + + + + + + | | 2021-10-23 | [facility] | NEGATIVE | (missing) | (missing) | | (unavailable | 11:10 [facility] | | | + + + + + + + + + | Result panel 67 | + + + + + + + + + | | 2021-12-07 | [facility] | NEGATIVE | (missing) | (missing) | | (unavailable | 08:05 [facility] | | | + + + + + + + + + | Result panel 68 | + + + + + +-------+ + + | | 2022-04-20 | [facility] | 2.9 | (missing) | (missing) | | (unavailable | 10:55:08 [facility] | | | + + + +-------+ + + + + | Result panel 69 | + + + + + +------+ + + | | 2022-04-20 | [facility] | 52 | (missing) | (missing) | | (unavailable | 10:55:08 [facility] | | | + + + +------+ + + + + | Result panel 70 | + + + + + +--------+ + + | | 2022-04-20 | [facility] | 42.6 | (missing) | (missing) | | (unavailable | 10:55:08 [facility] | | | + + + +--------+ + + + + | Result panel 71 | + + + + + +--------+ + + | | 2022-04-20 | [facility] | 34.0 | (missing) | (missing) | | (unavailable | 10:55:08 [facility] | | | + + + +--------+ + + + + | Result panel 72 | + + + + + +--------+ + + | | 2022-04-20 | [facility] | 22.2 | (missing) | (missing) | | (unavailable | 10:55:08 [facility] | | | + + + +--------+ + + + + | Result panel 73 | + + + + + +-------+ + + | | 2022-04-20 | [facility] | 0.3 | (missing) | (missing) | | (unavailable | 10:55:08 [facility] | | | + + + +-------+ + + + + | Result panel 74 | + + + + + +-------+ + + | | 2022-04-20 | [facility] | 0.9 | (missing) | (missing) | | (unavailable | 10:55:08 [facility] | | | + + + +-------+ + + + + | Result panel 75 | + + + + + +------+---------+ + | | 2022-04-20 | [facility] | 94 | mg/dL | (missing) | | (unavailable | 10:55:08 [facility] | | | + + + +------+---------+ + + + | Result panel 76 | + + + + + +------+---------+ + | | 2022-04-20 | [facility] | 31 | mg/dL | (missing) | | (unavailable | 10:55:08 [facility] | | | + + + +------+---------+ + + + | Result panel 77 | + + + + + +--------+---------+ + | | 2022-04-20 | [facility] | 1.37 | mg/dL | (missing) | | (unavailable | 10:55:08 [facility] | | | + + + +--------+---------+ + + + | Result panel 78 | + + + + + +------+ + + | | 2022-04-20 | [facility] | 39 | (missing) | (missing) | | (unavailable | 10:55:08 [facility] | | | + + + +------+ + + + + | Result panel 79 | + + + + + + + + + | | 2022-04-20 | [facility] | SEE COMMENT | (missing) | (missing) | | (unavailable | 10:55:08 [facility] | | | + + + + + + + + + | Result panel 80 | + + + + + +---------+ + + | | 2022-04-20 | [facility] | 22.62 | (missing) | (missing) | | (unavailable | 10:55:08 [facility] | | | + + + +---------+ + + + + | Result panel 81 | + + + + + +-------+ + + | | 2022-04-20 | [facility] | 143 | (missing) | (missing) | | (unavailable | 10:55:08 [facility] | | | + + + +-------+ + + + + | Result panel 82 | + + + + + +-------+ + + | | 2022-04-20 | [facility] | 3.4 | (missing) | (missing) | | (unavailable | 10:55:08 [facility] | | | + + + +-------+ + + + + | Result panel 83 | + + + + + +-------+ + + | | 2022-04-20 | [facility] | 107 | (missing) | (missing) | | (unavailable | 10:55:08 [facility] | | | + + + +-------+ + + + + | Result panel 84 | + + + + + +------+ + + | | 2022-04-20 | [facility] | 28 | (missing) | (missing) | | (unavailable | 10:55:08 [facility] | | | + + + +------+ + + + + | Result panel 85 | + + + + + +--------+ + + | | 2022-04-20 | [facility] | 11.4 | (missing) | (missing) | | (unavailable | 10:55:08 [facility] | | | | + + + +--------+ + + + + | Result panel 86 | + + + + + +-------+---------+ + | | 2022-04-20 | [facility] | 9.3 | mg/dL | (missing) | | (unavailable | 10:55:08 [facility] | | | | + + + +-------+---------+ + + + | Result panel 87 | + + + + + +-------+ + + | | 2022-04-20 | [facility] | 7.2 | (missing) | (missing) | | (unavailable | 10:55:08 [facility] | | | | + + + +-------+ + + + + | Result panel 88 | + + + + + +-------+ + + | | 2022-04-20 | [facility] | 4.1 | (missing) | (missing) | | (unavailable | 10:55:08 [facility] | | | | + + + +-------+ + + + + | Result panel 89 | + + + + + +-------+ + + | | 2022-04-20 | [facility] | 3.1 | (missing) | (missing) | | (unavailable | 10:55:08 [facility] | | | | + + + +-------+ + + + + | Result panel 90 | + + + + + +--------+ + + | | 2022-04-20 | [facility] | 3.89 | (missing) | (missing) | | (unavailable | 10:55:08 [facility] | | | | + + + +--------+ + + + + | Result panel 91 | + + + + + +--------+ + + | | 2022-04-20 | [facility] | 1.32 | (missing) | (missing) | | (unavailable | 10:55:08 [facility] | | | | + + + +--------+ + + + + | Result panel 92 | + + + + + +-------+ + + | | 2022-04-20 | [facility] | 0.8 | (missing) | (missing) | | (unavailable | 10:55:08 [facility] | | | | + + + +-------+ + + + + | Result panel 93 | + + + + + +------+ + + | | 2022-04-20 | [facility] | 16 | (missing) | (missing) | | (unavailable | 10:55:08 [facility] | | | | + + + +------+ + + + + | Result panel 94 | + + + + + +------+ + + | | 2022-04-20 | [facility] | 15 | (missing) | (missing) | | (unavailable | 10:55:08 [facility] | | | | + + + +------+ + + + + | Result panel 95 | + + + + + +------+ + + | | 2022-04-20 | [facility] | 82 | (missing) | (missing) | | (unavailable | 10:55:08 [facility] | | | | + + + +------+ + + + + | Result panel 96 | + + + + + +-------+ + + | | 2022-04-20 | [facility] | 196 | (missing) | (missing) | | (unavailable | 10:55:08 | [facility] | | | | + + + +-------+ + + + + | Result panel 97 | + + + + + + + + + | | 2022-04-20 | [facility] | SEE SCANNED | (missing) | (missing) | | (unavailable | 10:55:08 | [facility] | | [facility] ) | | [facility] | | | | + + + + + + + + + | Result panel 98 | + + + + + + + + + | | 2022-04-20 | [facility] | SEE SCANNED | (missing) | (missing) | | (unavailable | 10:55:08 | [facility] ) | | [facility] | | | | + + + + + + + + + | Result panel 99 | + + + + + + + + + | | 2022-04-20 | [facility] | SEE SCANNED | (missing) | (missing) | | (unavailable | 10:55:08 | [facility] | | [facility] | | | | + + + + + + + + + | Result panel 100 | + + + + + + + + + | | 2022-04-20 | [facility] | SEE SCANNED | (missing) | (missing) | | (unavailable | 10:55:08 | [facility] | | [facility] | | | | + + + + + + + + + | Result panel 101 | + + + + + +--------+ + + | | 2022-04-20 | [facility] | 11.5 | (missing) | (missing) | | (unavailable | 10:55:08 | [facility] | [facility] | | | | + + + +--------+ + + + + | Result panel 102 | + + + + + + + + + | | 2022-04-20 | [facility] | SEE SCANNED | (missing) | (missing) | | (unavailable | 10:55:08 | [facility] | | | | + + + + + + + + + | Result panel 103 | + + + + + + + + + | | 2022-04-20 | [facility] | SEE SCANNED | (missing) | (missing) | | (unavailable | 10:55:08 | [facility] | | [facility] | | | | + + + + + + + + + | Result panel 104 | + + + + + +--------+ + + | | 2022-04-20 | [facility] | 35.9 | (missing) | (missing) | | (unavailable | 10:55:08 | [facility] | | | | + + + +--------+ + + + + | Result panel 105 | + + + + + +--------+ + + | | 2022-04-20 | [facility] | 92.1 | (missing) | (missing) | | (unavailable | 10:55:08 | [facility] | | | | + + + +--------+ + + + + | Result panel 106 | + + + + + +--------+ + + | | 2022-04-20 | [facility] | 29.6 | (missing) | (missing) | | (unavailable | 10:55:08 | [facility] | | | | + + + +--------+ + + + + | Result panel 107 | + + + + + +--------+ + + | | 2022-04-20 | [facility] | 32.1 | (missing) | (missing) | | (unavailable | 10:55:08 | [facility] | | | | + + + +--------+ + + + + | Result panel 108 | + + + + + +--------+ + + | | 2022-04-20 | [facility] | 15.2 | (missing) | (missing) | | (unavailable | 10:55:08 | [facility] | | | | + + + +--------+ + + Social History No information. Vital Signs + + + +---------+ | date | measurement | value | units | + + + +---------+ | 2021-10-23 00:00 | BMI | 26.6 | kg/m2 | + + + +---------+ | 2021-10-23 00:00 | BP_diastolic | 66 | mmHg | + + + +---------+ | 2021-10-23 00:00 | BP_systolic | 154 | mmHg | + + + +---------+ | 2021-10-23 00:00 | heart_rate | 56 | /min | + + + +---------+ | 2021-10-23 00:00 | height_metric | 165.1 | cm | + + + +---------+ | 2021-10-23 00:00 | height_standard | 65 | in | + + + +---------+ | 2021-10-23 00:00 | o2_saturation | 99 | % | + + + +---------+ | 2021-10-23 00:00 | respiration_rate | 17 | /min | + + + +---------+ | 2021-10-23 00:00 | temperature_metric | 36.56 | C | | | | | | + + + +---------+ | 2021-10-23 00:00 | | 97.8 | F | | | temperature_standar | | | | | d | | | + + + +---------+ | 2021-10-23 00:00 | weight_metric | 72.57 | kg | + + + +---------+ | 2021-10-23 00:00 | weight_standard | 159.99 | lb | + + + +---------+ | 2021-10-23 00:00 | weight_standard | 160 | lb | + + + +---------+ | 2021-12-08 00:00 | BMI | 25.8 | kg/m2 | + + + +---------+ | 2021-12-08 00:00 | height_metric | 165.1 | cm | + + + +---------+ | 2021-12-08 00:00 | height_standard | 65 | in | + + + +---------+ | 2021-12-08 00:00 | weight_metric | 70.2 | kg | + + + +---------+ | 2021-12-08 00:00 | weight_standard | 154.76 | lb | + + + +---------+ | 2021-12-09 00:00 | BP_diastolic | 79 | mmHg | + + + +---------+ | 2021-12-09 00:00 | BP_systolic | 156 | mmHg | + + + +---------+ | 2021-12-09 00:00 | heart_rate | 70 | /min | + + + +---------+ | 2021-12-09 00:00 | o2_saturation | 96 | % | + + + +---------+ | 2021-12-09 00:00 | respiration_rate | 16 | /min | + + + +---------+ | 2021-12-09 00:00 | temperature_metric | 36.5 | C | | | | | | + + + +---------+ | 2021-12-09 00:00 | | 97.7 | F | | | temperature_standar | | | | | d | | | + + + +---------+ | 2022-04-13 00:00 | BMI | 24.7 | kg/m2 | + + + +---------+ | 2022-04-13 00:00 | height_metric | 165.1 | cm | + + + +---------+ | 2022-04-13 00:00 | height_standard | 65 | in | + + + +---------+ | 2022-04-13 00:00 | weight_metric | 67.27 | kg | + + + +---------+ | 2022-04-13 00:00 | weight_standard | 148.3 | lb | + + + +---------+ | 2022-04-20 00:00 | BP_diastolic | 79 | mmHg | + + + +---------+ | 2022-04-20 00:00 | BP_systolic | 157 | mmHg | + + + +---------+ | 2022-04-20 00:00 | heart_rate | 73 | /min | + + + +---------+ | 2022-04-20 00:00 | o2_saturation | 100 | % | + + + +---------+ | 2022-04-20 00:00 | respiration_rate | 16 | /min | + + + +---------+ | 2022-04-20 00:00 | temperature_metric | 36.94 | C | | | | | | + + + +---------+ | 2022-04-20 00:00 | | 98.5 | F | | | temperature_standar | | | | | d | | | + + + +---------+"
--- OUTSIDE RECORDS SUMMARY | ~2022-10-20 | XMS | Continuity of Care Document ---
Demographics + + + | Address | [address] | | | [place] [address] | + + + | Preferred Language | Unknown | + + + | Marital Status | | + + + | Yazidi Affiliation | Unknown | + + + | Race | White | + + + | Ethnic Group | Not or | + + + Author + + + | Author | [facility] | + + + | Organization | [facility] | + + + | Address | [address] | | | [place] [address] | + + + | Phone | | + + + Care Team Providers + + + + | [facility] Gl[employer] Turner And Former Automatic Name | Role | Phone | + + + + Unavailable | Unavailable | + + + + Unavailable | Unavailable | + + + + Allergies No information. Encounters No information. Functional Status No information. Immunizations No information. Medications + + + + | date | description | facility | + + + + | 2021-10-24 00:00 | ALLOPURINOL | [facility] | + + + + | 2021-12-09 00:00 | ALLOPURINOL | [facility] | + + + + | 2022-04-26 00:00 | ALLOPURINOL | [facility] | + + + + | 2021-10-24 00:00 | CHLORTHALIDONE | [facility] | + + + + | 2021-12-09 00:00 | CHLORTHALIDONE | [facility] | + + + + | 2022-04-26 00:00 | CHLORTHALIDONE | [facility] | + + + + | 2021-10-24 00:00 | ESTRADIOL | [facility] | + + + + | 2021-12-09 00:00 | ESTRADIOL | [facility] | + + + + | 2022-04-26 00:00 | ESTRADIOL | [facility] | + + + + | 2021-10-24 00:00 | AMOXICILLIN | [facility] | + + + + | 2021-10-24 00:00 | ASPIRIN | [facility] | + + + + | 2021-12-09 00:00 | ASPIRIN | [facility] | + + + + | 2022-04-26 00:00 | ASPIRIN | [facility] | + + + + | 2020-10-08 00:00 | CEPHALEXIN | [facility] | + + + + | 2021-10-24 00:00 | CIPROFLOXACIN HCL | [facility] | + + + + | 2021-12-09 00:00 | CIPROFLOXACIN HCL | [facility] | + + + + | 2022-04-26 00:00 | CIPROFLOXACIN HCL | [facility] | + + + + | 2021-10-24 00:00 | CLOPIDOGREL BISULFATE | [facility] | + + + + | 2021-12-09 00:00 | CLOPIDOGREL BISULFATE | [facility] | + + + + | 2022-04-26 00:00 | CLOPIDOGREL BISULFATE | [facility] | + + + + | 2021-10-24 00:00 | FUROSEMIDE | [facility] | + + + + | 2021-12-09 00:00 | FUROSEMIDE | [facility] | + + + + | 2022-04-26 00:00 | FUROSEMIDE | [facility] | + + + + | 2021-10-24 00:00 | POTASSIUM CHLORIDE | [facility] | + + + + | 2021-12-09 00:00 | POTASSIUM CHLORIDE | [facility] | + + + + | 2022-04-26 00:00 | POTASSIUM CHLORIDE | [facility] | + + + + | 2021-10-24 00:00 | ACETAMINOPHEN | [facility] | + + + + | 2021-12-09 00:00 | ACETAMINOPHEN | [facility] | + + + + | 2022-04-26 00:00 | ACETAMINOPHEN | [facility] | + + + + | 2021-10-24 00:00 | ASPIRIN | [facility] | + + + + | 2021-12-09 00:00 | ASPIRIN | [facility] | + + + + | 2022-04-26 00:00 | ASPIRIN | [facility] | + + + + | 2021-10-24 00:00 | ATORVASTATIN CALCIUM | [facility] | + + + + | 2021-12-09 00:00 | ATORVASTATIN CALCIUM | [facility] | + + + + | 2022-04-26 00:00 | ATORVASTATIN CALCIUM | [facility] | + + + + | 2017-08-22 00:00 | ATORVASTATIN | [facility] | + + + + | 2021-10-24 00:00 | POTASSIUM CHLORIDE | [facility] | + + + + | 2021-12-09 00:00 | POTASSIUM CHLORIDE | [facility] | + + + + | 2021-10-24 00:00 | VERAPAMIL HCL | [facility] | + + + + | 2021-12-09 00:00 | VERAPAMIL HCL | [facility] | + + + + | 2021-10-24 00:00 | LEVOTHYROXINE SODIUM | [facility] | + + + + | 2021-12-09 00:00 | LEVOTHYROXINE SODIUM | [facility] | + + + + | 2022-04-26 00:00 | LEVOTHYROXINE SODIUM | [facility] | + + + + | 2017-08-22 00:00 | MECLIZINE HCL | [facility] | + + + + Problems + + + + | date | description | facility | + + + + | 2017-08-22 00:00 | Cerebrovascular disease | [facility] | + + + + | 2017-08-22 00:00 | Vertigo | [facility] | + + + + | 2020-01-14 00:00 | Fracture of phalanx of toe | [facility] | | | | | + + + + | 2020-09-20 00:00 | Rash of both feet | [facility] | + + + + | 2020-10-08 00:00 | Cellulitis of left foot | [facility] | + + + + | 2021-02-15 00:00 | Left-sided chest wall pain | [facility] | | | | | + + + + | 2021-02-15 00:00 | Fall | [facility] | + + + + | 2021-10-23 00:00 | Pre-syncope | [facility] | + + + + | 2021-10-23 00:00 | Accidental drug ingestion | [facility] | + + + + Procedures + + + + | date | description | facility | + + + + | 2022-04-20 00:00 | DRAINAGE OF BONE MARROW, | [facility] | | | PERCUTANEOUS APPROACH, | | | | DIAGNOSTIC | | + + + + | 2021-12-09 00:00 | Colonoscopy | [facility] | + + + + | 2021-12-09 00:00 | Colonoscopy | [facility] | + + + + Results/Labs +--------+--------+ [...] (missing) | | (unavailable | 10:55:08 | [facility] | | | | | ) | [...]
[2022-10-21 00:05] VITALS: BP 145/80
== END ==
LOC: ED 17:36
DX: S12.8XXA Fracture of other parts of neck, initial encounter (principal); J96.90 Respiratory failure, unspecified, unspecified whether with hypoxia or hypercapnia; E03.9 Hypothyroidism, unspecified; I25.2 Old myocardial infarction; I12.9 Hypertensive chronic kidney disease with stage 1 through stage 4 chronic kidney disease, or unspecified chronic kidney disease; N18.30 Chronic kidney disease, stage 3 unspecified; Z20.822 Contact with and (suspected) exposure to COVID-19; Z79.82 Long term (current) use of aspirin; Z79.899 Other long term (current) drug therapy; W01.198A Fall on same level from slipping, tripping and stumbling with subsequent striking against other object, initial encounter; Y92.009 Unspecified place in unspecified non-institutional (private) residence as the place of occurrence of the external cause
CPT/HCPCS: 31500; 36415; 70360; 70491; 71045; 80053; 85025; 85610; 87502; 94002; C9803; J2704; Q9967; U0002

== ENCOUNTER 2023-01-24 11:32 | Emergency (ER) | payer MEDICARE ==
[~2023-01-24] VITALS: Ht 165.1 cm; Wt 67.1 kg
[2023-01-24] MEDS ORDERED: LIDODERM1 EACH TOP (12:39)
[2023-01-24 12:53] VITALS: BP 160/80
== END 2023-01-24 12:53 | disposition home or self-care (01) ==
LOC: ED 11:32
DX: S20.212A Contusion of left front wall of thorax, initial encounter (principal); W17.89XA Other fall from one level to another, initial encounter; I12.9 Hypertensive chronic kidney disease with stage 1 through stage 4 chronic kidney disease, or unspecified chronic kidney disease; N18.30 Chronic kidney disease, stage 3 unspecified; I25.2 Old myocardial infarction; E03.9 Hypothyroidism, unspecified; Z79.899 Other long term (current) drug therapy; Z79.82 Long term (current) use of aspirin
CPT/HCPCS: 71250; A9270

== ENCOUNTER 2023-02-25 22:34 | Emergency (ER) | payer MEDICARE ==
[~2023-02-25] VITALS: Ht 165.1 cm; Wt 67.1 kg
[~2023-02-25 22:34] MED LIST changes: -ASPIRIN81 MG PO; +LIDODERM1 EACH TOP; +LOW DOSE ASPIRI81 MG PO
[2023-02-26 00:39] LABS: BILIRUBIN, URINE NEGATIVE (negative); BLOOD/HGB, URINE TRACE-I (Negative); KETONE, URINE NEGATIVE (Negative); LEUK ESTERASE, URINE MODERATE (negative); NITRITE, URINE POSITIVE (negative)
[2023-02-26 00:42] LABS: BACTERIA, URINE 4+ /hpf (negative); EPITHELIAL CELLS, URINE SQUAMOUS 1+ /lpf (0-1+); REFLEX CULTURE, URINE Yes (No); WHITE BLOOD CELLS, URINE >50 /HPF (0-5)
[2023-02-26] MEDS ORDERED: CEPHALEXIN500 MG PO (00:53)
[2023-02-26] MEDS ORDERED: PERCOCET 5-3251 EACH PO (00:53)
[2023-02-26 01:28] VITALS: BP 154/89
== END 2023-02-26 01:29 | disposition home or self-care (01) ==
LOC: ED 22:34
PROVIDERS: Internal Medicine
DX: S22.079A Unspecified fracture of T9-T10 vertebra, initial encounter for closed fracture (principal); S22.42XA Multiple fractures of ribs, left side, initial encounter for closed fracture; W01.0XXA Fall on same level from slipping, tripping and stumbling without subsequent striking against object, initial encounter; N39.0 Urinary tract infection, site not specified; I12.9 Hypertensive chronic kidney disease with stage 1 through stage 4 chronic kidney disease, or unspecified chronic kidney disease; N18.30 Chronic kidney disease, stage 3 unspecified; I25.2 Old myocardial infarction; E03.9 Hypothyroidism, unspecified; Z79.899 Other long term (current) drug therapy; Z79.82 Long term (current) use of aspirin
CPT/HCPCS: 70450; 71250; 72125; 72128; 73610; 81001; 87088; 87186; 99284-25; A9270

== ENCOUNTER 2023-02-27 10:20 | Observation (INO) | payer MEDICARE ==
[~2023-02-27] VITALS: Ht 165.1 cm; Wt 68.3 kg
[~2023-02-27 10:20] MED LIST changes: +PERCOCET 5-3251 EACH PO
--- OUTSIDE RECORDS SUMMARY | 2023-02-27 10:25 | XMS ---
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 EPatrick VISIT COUNT (12 MO.) [address] [place] [address] TOTAL 5 NOTE: Visits indicate total known visits. ED/UCC VISIT TRACKING (12 MO.) 02/27/2023 10:20 [facility] [place] TYPE: Emergency COMPLAINT: - SHORTNESS OF BREATH 02/25/2023 22:34 [facility] TYPE: Emergency COMPLAINT: - FALL 01/24/2023 11:32 [facility] TYPE: Emergency COMPLAINT: - FALL, L RIB PAIN DIAGNOSES: - Chronic kidney disease, stage 3 unspecified - Contusion of left front wall of thorax, initial encounter - Hypertensive chronic kidney disease with stage 1 through stage 4 chronic kidney disease, or unspecified chronic kidney disease - Hypothyroidism, unspecified - terminal makeup operator (current) use of aspirin - Old myocardial infarction - Other fall from one level to another, initial encounter - 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 trauma 10/20/2022 17:36 [facility] TYPE: Emergency COMPLAINT: - NECK INJURY DIAGNOSES: - Cervicalgia - Chronic kidney disease, stage 3 unspecified - Contact with and (suspected) exposure to COVID-19 - Fall on same level from slipping, tripping and stumbling with subsequent striking against other object, initial encounter - Fracture of other parts of neck, initial encounter - Hypertensive chronic kidney disease with stage 1 through stage 4 chronic kidney disease, or unspecified chronic kidney disease - Hypothyroidism, unspecified - terminal makeup operator (current) use of aspirin - Old myocardial infarction - Other rat exterminator (current) drug therapy - Respiratory failure, unspecified, unspecified whether with hypoxia or hypercapnia - Unspecified place in unspecified non-institutional (private) residence as the place of occurrence of the external cause INPATIENT VISIT TRACKING (12 MO.) 10/21/2022 01:35 [facility] TYPE: Surgery DIAGNOSES: [address]98[address]. Injury, unspecified, initial encounter [email or web address]
[2023-02-27 11:04] LABS: BASOPHILS 0.2 % (0-2); EOSINOPHILS 0.2 % (0-6); HEMATOCRIT 36.6 % (35.0-50.0); HEMOGLOBIN 11.6 g/dL (12.0-18.0); LYMPHOCYTES 27.1 % (24-44); MCH 28.5 (27-36); MCHC 31.6 g/dl (30-36); MCV 90.2 fl (81-99); MONOCYTES 15.8 % (0-12); NEUTROPHILS 56.7 % (39-80); RBC 4.06 M/ul (4.3-5.7); RDW 16.5 (10.5-15.0)
[2023-02-27 11:22] LABS: ALBUMIN 4.1 g/dL (3.4-5.0); ALBUMIN/GLOBULIN RATIO 1.41 (1.1-2.4); ANION GAP 14.9 (7-21); BILIRUBIN, TOTAL 0.9 ng/dL (0.2-1.0); BUN/CREATININE RATIO 14.96 (6.0-28.6); CALCIUM 9.4 mg/dL (8.5-10.1); CREATININE, SERUM 1.27 mg/dL (0.55-1.02); POTASSIUM 3.9 mmol/L (3.5-5.1)
[2023-02-27 11:25] LABS: PLATELET COUNT 36 K/uL (140-440)
[2023-02-27] MEDS ORDERED: LIDOCAINE HCL 4% 1 EACH PATCH TD SCH (13:44)
[2023-02-27] MEDS ORDERED: MORPHINE SULFATE 4 MG/ML VIAL IV PRN (14:00)
[2023-02-27] MEDS ORDERED: ondansetron HCL 4 MG/2 ML VIAL IV PRN (14:00)
[2023-02-27] MEDS ORDERED: ACETAMINOPHEN 500 MG TAB PO PRN (14:00)
[2023-02-27 14:32] VITALS: BP 141/58
--- NOTE | 2023-02-27 15:07 | NUR ---
ADMISSION COMPLETE. ECHO BEING DONE NOW. PATIENT IS UNABLE TO RATE HER PAIN, BUT INDICATED THAT HER RIGHT SHOULDER WAS HER MOST PAINFUL AREA AND THAT IS WHERE THE LIDOCAINE IS PLACED. PATIENT IS ORIENTED TO DATE, NOT PLACE OR TIME. DAUGHTER SUSANNA IS IN ROOM AND CONTACT INFORMATION IS ON ROOM WHITEBOARD. BED ALARM IS ON. PATIENT DOES HAVE INCONT PAD IN PLACE.
--- NOTE | 2023-02-27 16:00 | NUR ---
Met with pt and her daughter Tiana. Pt lives alone, but per daughter she stays with pt frequently and assists her daily. Per daughter, pt has been having frequent falls. She is unsure why this is happening and feels it may be partially due to the shoes she wears. She also states pt gets up in a hurry and falls. Pt has 4 steps into her home and then all is level. Pt fell two days ago and has a fx ribs and a fx in her vertebra. Pt has a walker, cane, toilet Riser, and shower chair at home. She denies need for further DME. PT was present and assisted pt to the bathroom. Pt cried out in pain with all movement. Pt was given IV pain meds by the RN. Will fu with pt tomorrow to see if her pain is controlled or if other arrangements will need to be made. We discussed placement to SNFs, SNF, and cg in the home. Pt pt she is low income. I gave them the phone number to [facility] to see if pt would qualify for a cg or placement. Pt is not interested in placement at this time. Will follow with them tomorrow.
--- NOTE | 2023-02-27 16:02 | NUR ---
PATIENT GIVEN 2MG OF IV MORPHINE BEFORE PHYSICAL THERAPY.
--- NOTE | 2023-02-27 16:06 | NUR ---
medications reconciled using pharmacy records, visual inspection of pharmacy vials and patient's daughter interview
--- NOTE | 2023-02-27 17:29 | NUR ---
PATIENT UP TO CHAIR FOR DINNER AFTER WORKING WITH OT. DAUGHTER IS IN ROOM.
[2023-02-27 18:21] VITALS: BP 142/60
--- NOTE | 2023-02-27 18:22 | NUR ---
PATIENT BACK TO BED FROM CHAIR, 1PA FWW. DAUGHTER IN ROOM. VITALS AND I&O'S CHARTED. CALL LIGHT IN REACH. NO FURTHER NEEDS AT THIS TIME.
--- NOTE | 2023-02-27 19:25 | NUR ---
BEDSIDE REPORT RECEIVED FROM ALBERTINA JOHNS, PT RESTING QUIETLY WITH EYES CLOSED, DAUGHTER AT BEDSIDE.
--- NOTE | 2023-02-27 19:41 | NUR ---
PT RESTING IN BED, DAUGHTER AT HER SIDE, PAINFUL RIGHT HAND, BRUISE AND SWELLING NOTED ON TOP OF HAND, HAND ELEVATED ON PILLOW AND FRESH ICE BAG TO HAND, PT ATTEMPTING TO REST.
[2023-02-27] MEDS ORDERED: LIDOCAINE PATCH REMOVAL 1 EA TD SCH (21:00)
[2023-02-27] MEDS ORDERED: CEPHALEXIN MONOHYDRATE 500 MG CAP PO SCH (21:00)
--- NOTE | 2023-02-27 21:30 | NUR ---
IN TO THE ROOM TO ANSWER PATIENT'S CALL LIGHT. PATIENT TOOK A WHILE TO GET OUT OF BED. C/O PAIN. DAUGHTER AT BEDSIDE INSTRUCTING PATIENT ON HOW TO GET OUT OF BED. AFTER A FEW MINUTES PATIENT EASILY STOOD UP FROM BED ON HER OWN AND WALKED TO THE BATHROOM USING WALKER. PATIENT VOIDED 100ML DARK YELLOW URINE. PATIENT GOT BACK SITTING AT THE EDGE OF THE BED FOR ANOTHER 5-10 MINS BEFORE LAYING DOWN IN BED WITH THE HELP OF DAUGHTER'S INSTRUCTIONS. V/S AND I&O'S DONE. PRIMARY RN CAME IN THE ROOM. WARMING PAD IS IN PLACED. BED ALARM ON FOR SAFETY. DAUGHTER IS LAYING IN THE COUCH.
[2023-02-27 21:45] VITALS: BP 146/64
--- NOTE | 2023-02-27 21:45 | NUR ---
PT C/O BACK AND RIB PAIN, DISCUSSED TRYING TYLENOL FIRST AND PT AGREES, PT MEDICATED PER ORDER WITH TYLENOL, ASSESSMENT COMPLETED, ICE REPLACED TO RIGHT HAND, DAUGHTER STATES PATIENT LIKES TO TAKE HER MEDICATION WITH APPLESAUCE, PT ENCOURAGED TO DRINK WATER BUT DECLINES STATING SHE DOESN'T WANT TO GET UP TO VOID IN THE NIGHT, DISCUSSED THE IMPORTANCE OF WATER TO AIDE IN HYDRATION AND FOR KIDNEYS, PT STATES SHE MAY TRY JELLO. PT OFFERED A KPAD TO RIBS AND BACK, PT AGREES TO THIS.
--- NOTE | 2023-02-27 23:00 | NUR ---
PT RESTING QUIETLY, ASSISTED SLOWLY ROLLING SIDE TO SIDE FOR PLACEMENT OF KPAD, PT TOLERATED TURNING FAIR, PT ABLE TO RELAX AFTER KPAD IN PLACE. PT RESTING QUIETLY WITH EYES CLOSED, BED ALARM ON, SIDE RAILS UP AND BED LOW POSITION, DUGHTER ON COUCH.
--- NOTE | 2023-02-28 00:15 | NUR ---
PT ASLEEP, RESP EVEN AND REG.
[2023-02-28 02:00] VITALS: BP 138/66
--- NOTE | 2023-02-28 02:29 | NUR ---
PATIENT CALLED TO USE THE BATHROOM. 1 PA/SBA. PATIENT IS MORE ALERT MOTIVATED AND TALKS MORE THIS TIME. PATIENT VOIDED UNMEASURED. PATIENT IS BACK IN BED. V/S AND I&O'S COMPLETED. PATIENT OFFERED SOMETHING TO DRINK. APPLE JUICE PROVIDED PER PATIENT. PATIENT STATED NO PAIN AND NO FURTHER NEEDS OR CONCERN AT THIS TIME. DAUGHTER IS AWAKE LAYING ON THE COUCH. BED ALARM ON. CALL LIGHT AND SIDE TABLE WITHIN REACH.
--- NOTE | 2023-02-28 03:25 | NUR ---
PT APPEARS TO SLEEP, RESP EVEN AND REG.
--- NOTE | 2023-02-28 05:23 | NUR ---
PT AWAKEN, VS STABLE, ASSESSMENT COMPLETED, PT ASSISTED UP TO BR TO VOID, VOIDED APPROX 50ML, BACK TO BED, MEDICATED WITH TYLENOL FOR PAIN 5/10 IN APPLESAUCE, KPAD REMAINS TO BACK, BLADDER SCANNED FOR 14 ML OF URINE, ENCOURAGE PT TO INCREASE PO INTAKE. PLAN TO MONITOR. PT RESTING.
[2023-02-28 05:24] VITALS: BP 148/62
[2023-02-28 05:28] LABS: HEMATOCRIT 32.3 % (35.0-50.0); HEMOGLOBIN 10.5 g/dL (12.0-18.0); MCH 29.1 (27-36); MCHC 32.6 g/dl (30-36); MCV 89.4 fl (81-99); RBC 3.62 M/ul (4.3-5.7); RDW 16.4 (10.5-15.0)
[2023-02-28 05:32] LABS: ANION GAP 10.7 (7-21); BUN/CREATININE RATIO 14.28 (6.0-28.6); CALCIUM 8.7 mg/dL (8.5-10.1); CREATININE, SERUM 1.19 mg/dL (0.55-1.02); POTASSIUM 3.7 mmol/L (3.5-5.1)
[2023-02-28 05:46] LABS: PLATELET COUNT 29 K/uL (140-440)
--- NOTE | 2023-02-28 05:47 | EKG ---
[facility] [address] [place] [address] Signed Normal sinus rhythm with sinus arrhythmia Low voltage QRS Borderline ECG similar to previous ekg Confirmed by JODI JOHNSON MD ([id number]) on 02/28/2023 5:46:54 AM Electronically Signed By: JODI JOHNSON 02/28/23 0547 PATIENT NAME: JAMEL CHRISTINE Electrocardiogram DATE OF : 38 PHYSICIAN: JODI JOHNSON REPORT #: [id number] REPORT IS CONFIDENTIAL AND NOT TO BE RELEASED WITHOUT AUTHORIZATION
[2023-02-28 06:10] LABS: BANDS, MANUAL DIFF 6; LYMPHOCYTES, MANUAL DIFF 25; MONOCYTES, MANUAL DIFF 18; NEUTROPHILS, MANUAL DIFF 51
--- NOTE | 2023-02-28 06:31 | NUR ---
TO FLOOR. AWARE OF PLT COUNT, WELL LOW URINE OP.
--- NOTE | 2023-02-28 06:40 | NUR ---
DR ACEVEDO UPDATED ON PT'S U/O, BLADDER SCAN RESIDUAL OF 14ML, AND PO INTAKE. NO NEW ORDERS AT THIS TIME.
--- NOTE | 2023-02-28 07:11 | NUR ---
REPORT RECEIVED FROM NAT GARCIA. PT RESTING IN BED, VISITING WITH DAUGHTER, AWAKE AND ALERT. PT DENIES PAIN AND NAUSEA AT THIS TIME. REPORTS PAIN WAS "REALLY BAD" GETTING UP TO THE RESTROOM. PTS DAUGHTER REPORTS PT ENJOIED THE APPLE JUICE. ADDITIONAL APPLE JUICE PROVIDED. NO ADDITIONAL REQUEST OR COMPLAINTS. CALL LIGHT WITHIN REACH. BED RAILS UP.
--- NOTE | 2023-02-28 07:11 | NUR ---
RECIEVED REPORT FROM NAT GARCIA. PT AWAKE AND ALERT IN BED WITH DAUGHTER AT THE BEDSIDE. REQUESTS MORE APPLE JUICE, GIVEN. PT STATES PAIN IS 0/10 WHILE LAYING IN BED. PT STATES NO FURTHER NEEDS AT THE TIME, CALL LIGHT WITHIN REACH, BED RAILS UP. ASSUMING CARE OF PT WITH NAT GALEANO.
--- NOTE | 2023-02-28 08:05 | NUR ---
IN TO HELP PATIENT GET CLEANED UP AFTER SPILLING SOME APPLE JUICE. WARM BATH WIPES USED TO GIVE BED BATH. NEW GOWN PROVIDED. PATIENT UP TO CHAIR FROM BED, 1PA FWW. LINENS CHANGED. BREAKFAST SET UP FOR PATIENT. CALL LIGHT IN REACH. NO FURTHER NEEDS AT THIS TIME.
--- NOTE | 2023-02-28 08:45 | NUR ---
MORNING ASSESSMENT AND MEDICATION DUE. PT UP TO CHAIR, EATING BREAKFAST. PTS DAUGHTER REMAINS AT BEDSIDE. PT ALERT AND OREINTED TO ALL BUT EXACT DATE. FORGETFUL AND REPEATS THE SAME QUESTIONS. PT HAS DIFFICULTY WITH NUMERIC PAIN SCALE, USES FACES PAIN SCALE WELL, POINTING TO 8/10 . PT GRABS RIGHT SIDE OF RIBS STATING "THAT'S WERE ALL THE PAIN IS." LIDOCANE PATCH APPLIED. FAMILY REQUESTS SOMETHING STRONGER THAN TYELNOL FOR PAIN CONTROL. DR JOHNSON CONSULTED AND ORDERS GIVEN, ENTERED, REPEAT BACK PERFORMED. LUNG SOUNDS CLEAR. PT MAINTAINING OXYGEN SATURATIONS ABOVE 94% ON ROOM AIR. AUDIBLE WHEEZES HEARD AT TIMES WHEN PT ATTEMPTS TO DO ACTIVITIES, PT REPORTS "I MAKE THAT NOISE BECAUSE OF THE PAIN." NO COUGH PRESENT. HEAR TONES REGULAR. BOWEL TONES ACTIVE. PT DENIES NAUSEA. MIRALAX ENCOURGED RELATED TO PAIN MEDICATIONS. PT HAS YET TO VOID THIS MORNING. DEPENDS IN PLACE. PO HYDRATION ENCOURAGED. NO ADDITIONAL REQUSTS OR COMPLAINTS. FAMILY REMAINS AT BEDSIDE. MEDICATIONS GIVEN. CALL LIGHT WITHIN REACH.
--- NOTE | 2023-02-28 08:45 | NUR ---
MS ALVA. LISTENED EMPATHETICALLY. PROVIDED HOSPITALITY. LISTENED EMPATHETICALLY. NORMALIZED EXPERIENCE. PROVIDED PRAYER. PT AND DAUGHTER EXPRESSED GRATITUDE.
[2023-02-28] MEDS ORDERED: OXYCODONE HCL 5 MG TAB PO PRN (09:00)
[2023-02-28] MEDS ORDERED: PANTOPRAZOLE SODIUM 40 MG/10 ML VIAL IV SCH (09:00)
[2023-02-28] MEDS ORDERED: PHARMACY RENAL DOSE ADJUSTMENT 1 DOSE MISC PO SCH (09:00)
[2023-02-28] MEDS ORDERED: PANTOPRAZOLE SODIUM 40 MG TABEC PO SCH (09:00)
[2023-02-28] MEDS ORDERED: POLYETHYLENE GLYCOL 3350 1 PACKET PO SCH (09:00)
--- NOTE | 2023-02-28 09:50 | NUR ---
THIS RN TO ROOM TO CHECK ON PT. PT WORKING WITH PYSICAL THERAPY. PT REPORTS PAIN HAS IMPROVED WITH PAIN MEDICATION, NOW POINTS TO 5/10 ON FACES SCALE. PT WORKING WITH PHYSICAL THERPY. UP TO AMBULATE WITH 1 PERSON ASSIST AND FWW. PT REPORTS INCREASED PAIN WITH ACTIVITY BUT IS UNABLE TO RATE PAIN. NO ADDITIONAL NEEDS AT THIS TIME. CALL LIGHT WITHIN REACH. EDUCATION DONE WITH PT AND FAMILY REGADING IMPORTANCE OF ACTIVITY.
--- NOTE | 2023-02-28 10:22 | NUR ---
THIS RN TO ROOM WITH DR ACEVEDO FOR ROUNDS. PT AND FAMILY UPDATED ON PLAN OF CARE AND PLAN FOR DISCHRAGE. PRN PAIN MEDICATIONS REVEIWED WITH PT AND PTS DAUGHTER. PT REPORTS 4/10 PAIN AT THIS TIME AND DENIES NEED FOR ADDITIONAL MEDICATION. I.S. PROVIDED. EDUCATIOND ONE WITH PT. PT DEMONSTRATES UNDERSTANDING OF I.S. REACHING 1000 ML X 5 . NO ADDITIONAL REQUESTS OR COMPLAINTS CALL LIGHT WIHTIN REACH. PTS DAUGHTER REMAINS AT BEDSIDE.
[2023-02-28] MEDS ORDERED: LIDODERM1 EACH TOP (10:35)
[2023-02-28] MEDS ORDERED: OXYCODONE HCL5 MG PO (10:36)
[2023-02-28 10:52] VITALS: BP 147/53
--- NOTE | 2023-02-28 11:15 | NUR ---
HOURLY ROUNDING: PT WORKING WITH OCCUPATIONAL THERAPIST. DISCHRAGE PAPERWORK COMPLETE. WILL WAIT FOR PT TO FINISH THERAPY BEFORE REVIEWING DISCHRAGE INSTRUCTIONS. VITAL SIGNS STABLE. NO ADDITIONAL NEEDS AT THIS TIME. PT SMILING AND LAUGHING DURING THERAPY. CALL LIGHT WITHIN REACH.
--- NOTE | 2023-02-28 11:58 | NUR ---
PT READY FOR DISCHRAGE. PT DRESSED WITH ONE PERSON ASSISTANCE FROM DAUGHTER. PT REPORTS PAIN REMAINS WELL CONTROLLED BUT WITH MOVEMENT WHEN IT INCREASES. DISCHRAGE INSTRUCTIONS REVIEWED WITH PT AND PTS DAUGHTER. PT AND DAUGHTER VERBALIZE UNDERSTANDING OF INSTRUCTIONS, MEDICATIONS, FOLLOW UP, AND PAIN CONTROL AT HOME. NO ADDITIONAL REQUESTS OR QUESTIONS AT THIS TIME. IV DC'D BY [facility], [place]. PT TRANSFERSE SELF TO WHEELCHAIR AND WHEELED FROM MED/SUG WITH DAUGHTER.
--- NOTE | 2023-02-28 12:30 | NUR ---
Spoke with Renetta and her daughter, Tiana. Pt is getting ready for dc. Both deny needs. Discussed with pt has ordered HH PT/OT and both are in agreement and would like to use [facility]. Let them Know I will fax the chart and orders. Daughter will fu with [facility] for medicaid terminal manager care. No further needs.
--- NOTE | 2023-02-28 13:11 | NUR ---
Face sheet, Referral, F2F, H&P, DC summary, PT/OT notes faxed to [facility] asking speaking with Alka.
== END 2023-02-28 12:00 | disposition home or self-care (01) ==
LOC: ED 10:20 → MS 10:21 → ED 13:36 → MS 13:36
PROVIDERS: Emergency Medicine; ADMIT Family Medicine; ATTEND Family Medicine
DX: J96.01 Acute respiratory failure with hypoxia (principal); S22.32XA Fracture of one rib, left side, initial encounter for closed fracture; S22.079A Unspecified fracture of T9-T10 vertebra, initial encounter for closed fracture; I12.9 Hypertensive chronic kidney disease with stage 1 through stage 4 chronic kidney disease, or unspecified chronic kidney disease; N18.31 Chronic kidney disease, stage 3a; E03.9 Hypothyroidism, unspecified; E78.5 Hyperlipidemia, unspecified; I25.118 Atherosclerotic heart disease of native coronary artery with other forms of angina pectoris; I25.2 Old myocardial infarction; D61.818 Other pancytopenia; N39.0 Urinary tract infection, site not specified; D69.6 Thrombocytopenia, unspecified; I48.91 Unspecified atrial fibrillation; Z79.899 Other long term (current) drug therapy; W18.30XA Fall on same level, unspecified, initial encounter
CPT/HCPCS: 36415; 51798; 71045; 80048; 80053; 83880; 84484; 85025; 85060; 93005; 93010; 93306; 96374; 97116; 97162; 97166; 97530; 97535; 99285-25; A9270; G0378; J2270

== ENCOUNTER 2023-03-04 14:26 | Emergency (ER) | payer MEDICARE ==
[~2023-03-04] VITALS: Ht 165.1 cm; Wt 68.0 kg
[~2023-03-04 14:26] MED LIST changes: +OXYCODONE HCL5 MG PO
--- OUTSIDE RECORDS SUMMARY | 2023-03-04 14:28 | XMS ---
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 EPatrick VISIT COUNT (12 MO.) [address] [place] [address] TOTAL 5 NOTE: Visits indicate total known visits. ED/UCC VISIT TRACKING (12 MO.) 03/04/2023 14:27 [facility] [place] TYPE: Emergency COMPLAINT: - CONSTIPATION 02/25/2023 22:34 [facility] [place] TYPE: Emergency COMPLAINT: - FALL DIAGNOSES: - Chronic kidney disease, stage 3 unspecified - Dorsalgia, unspecified - Fall on same level from slipping, tripping and stumbling without subsequent striking against object, initial encounter - Hypertensive chronic kidney disease with stage 1 through stage 4 chronic kidney disease, or unspecified chronic kidney disease - Hypothyroidism, unspecified - detention (current) use of aspirin - Multiple fractures of ribs, left side, initial encounter for closed fracture - Old myocardial infarction - 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 - Unspecified fracture of T9-T10 vertebra, initial encounter for closed fracture - Urinary tract infection, site not specified 01/24/2023 11:32 [facility] [place] TYPE: Emergency COMPLAINT: - FALL, L RIB PAIN DIAGNOSES: - Chronic kidney disease, stage 3 unspecified - Contusion of left front wall of thorax, initial encounter - Hypertensive chronic kidney disease with stage 1 through stage 4 chronic kidney disease, or unspecified chronic kidney disease - Hypothyroidism, unspecified - intermission coordinator (current) use of aspirin - Old myocardial infarction - Other fall from one level to another, initial encounter - Other correction (current) drug therapy - Pleurodynia 10/21/2022 01:35 [facility] TYPE: Emergency DIAGNOSES: 06243. 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 [place] TYPE: Observation COMPLAINT: - AHRF, RIB FX DIAGNOSES: - Acute respiratory failure with hypoxia - Atherosclerotic heart disease of [place] coronary artery with other forms of angina pectoris - Chronic kidney disease, stage 3a - Fall on same level, unspecified, initial encounter - Fracture of one rib, left side, initial encounter for closed fracture - Hyperlipidemia, unspecified - Hypertensive chronic kidney disease with stage 1 through stage 4 chronic kidney disease, or unspecified chronic kidney disease - Hypothyroidism, unspecified - Hypoxemia - Old myocardial infarction - 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 Injury, unspecified, initial encounter [email or web address]
[2023-03-04] MEDS ORDERED: PAIN RELIEF EX500 MG PO (15:36)
[2023-03-04] MEDS ORDERED: GLYCERIN L5.4 GM/5.4 PR (15:37)
[2023-03-04] MEDS ORDERED: MIRALAX119 GM PO (15:37)
[2023-03-04] MEDS ORDERED: SENNA PLUS 8.61 EACH PO (15:38)
[2023-03-04 18:33] VITALS: BP 170/90
== END 2023-03-04 18:33 | disposition home or self-care (01) ==
LOC: ED 14:26
DX: K59.00 Constipation, unspecified (principal); I12.9 Hypertensive chronic kidney disease with stage 1 through stage 4 chronic kidney disease, or unspecified chronic kidney disease; N18.30 Chronic kidney disease, stage 3 unspecified; E03.9 Hypothyroidism, unspecified; Z79.899 Other long term (current) drug therapy; Z79.890 Hormone replacement therapy; Z79.82 Long term (current) use of aspirin; Z79.891 Long term (current) use of opiate analgesic
CPT/HCPCS: 74018; J2212

== ENCOUNTER 2023-03-31 18:09 | Emergency (ER) | payer MEDICARE ==
[~2023-03-31] VITALS: Ht 165.1 cm; Wt 68.1 kg
[~2023-03-31 18:09] MED LIST changes: +GLYCERIN L5.4 GM/5.4 PR; +MIRALAX119 GM PO; +PAIN RELIEF EX500 MG PO; +SENNA PLUS 8.61 EACH PO
--- OUTSIDE RECORDS SUMMARY | 2023-03-31 18:17 | XMS ---
PreManage Notification: JAMEL CHRISTINE Security Compliance Vice President Events No recent Security Events currently on file CRITERIA MET - 6 ED Visits in 6 Months - [facility] - 2 Visits in 30 Days CARE PROVIDERS RIGOBERTO ORELLANA Physician Call Center Coordinator 10/09/2020-Current PHONE: Unknown Charises has no Care Guidelines for this patient. Heike VISIT COUNT (12 MO.) [address] [place] [address] TOTAL 6 NOTE: Visits indicate total known visits. ED/UCC VISIT TRACKING (12 MO.) 03/31/2023 18:09 [facility] [place] TYPE: Emergency COMPLAINT: - WEAKNESS 03/04/2023 14:27 [facility] [place] TYPE: Emergency COMPLAINT: - CONSTIPATION DIAGNOSES: - Chronic kidney disease, stage 3 unspecified - Constipation, unspecified - Hormone replacement therapy - Hypertensive chronic kidney disease with stage 1 through stage 4 chronic kidney disease, or unspecified chronic kidney disease - Hypothyroidism, unspecified - terminal gauger (current) use of aspirin - M[facility] (current) use of opiate analgesic - Other snf (current) drug therapy 02/25/2023 22:34 [facility] [place] TYPE: Emergency COMPLAINT: - FALL DIAGNOSES: - Chronic kidney disease, stage 3 unspecified - Dorsalgia, unspecified - Fall on same level from slipping, tripping and stumbling without subsequent striking against object, initial encounter - Hypertensive chronic kidney disease with stage 1 through stage 4 chronic kidney disease, or unspecified chronic kidney disease - Hypothyroidism, unspecified - terminal gauger (current) use of aspirin - Multiple fractures of ribs, left side, initial encounter for closed fracture - Old myocardial infarction - Other snf (current) drug therapy - Unspecified fracture of [...] kidney disease - Hypothyroidism, unspecified - terminal gauger (current) use of aspirin - Old myocardial infarction - Other fall from one level to another, initial encounter - Other snf (current) drug therapy - Pleurodynia 10/21/2022 01:35 [facility] TYPE: Emergency DIAGNOSES: 23068. trauma 10/20/2022 17:36 [facility] [place] TYPE: [...] chronic kidney disease - Hypothyroidism, unspecified - MCC (current) use of aspirin - Old myocardial infarction - Other snf (current) drug therapy - Respiratory failure, unspecified, unspecified whether with hypoxia or hypercapnia - Unspecified place in unspecified non-institutional (private) residence as the place of occurrence of the external cause INPATIENT VISIT TRACKING (12 MO.) 02/27/2023 10:21 [facility] [place] TYPE: Observation COMPLAINT: - AHRF, RIB FX DIAGNOSES: - Acute respiratory failure with hypoxia - Atherosclerotic heart disease of [place] coronary artery with other forms of angina [...] Hypoxemia - Old myocardial infarction - Other snf (current) drug therapy - Other pancytopenia - Thrombocytopenia, unspecified - Unspecified atrial fibrillation - Unspecified fracture of T9-T10 vertebra, initial encounter for closed fracture - Urinary tract infection, site not specified 10/21/2022 01:35 [facility] TYPE: Surgery DIAGNOSES: 85206. Injury, unspecified, initial encounter [email or web address]
[2023-03-31] MEDS ORDERED: GABAPENTIN300 MG PO (18:21)
[2023-03-31] MEDS ORDERED: CALCITONIN-SAL3.7 ML (18:21)
[2023-03-31] MEDS ORDERED: LIDOCAINE1 EACH (18:21)
[2023-03-31 18:51] LABS: BASOPHILS 0.8 % (0-2); HEMATOCRIT 33.9 % (35.0-50.0); HEMOGLOBIN 10.9 g/dL (12.0-18.0); LYMPHOCYTES 14.4 % (24-44); MCH 29.3 (27-36); MCHC 32.3 g/dl (30-36); MCV 90.8 fl (81-99); MONOCYTES 28.6 % (0-12); NEUTROPHILS 55.2 % (39-80); RBC 3.74 M/ul (4.3-5.7); RDW 16.7 (10.5-15.0)
[2023-03-31 18:57] LABS: PLATELET COUNT 35 K/uL (140-440)
[2023-03-31 19:18] LABS: ALBUMIN 3.2 g/dL (3.4-5.0); ALBUMIN/GLOBULIN RATIO 0.94 (1.1-2.4); ANION GAP 13.9 (7-21); BILIRUBIN, TOTAL 0.4 ng/dL (0.2-1.0); BUN/CREATININE RATIO 17.11 (6.0-28.6); CALCIUM 8.4 mg/dL (8.5-10.1); CREATININE, SERUM 1.11 mg/dL (0.55-1.02); POTASSIUM 3.9 mmol/L (3.5-5.1); PROTEIN, TOTAL 6.6 g/dL (6.4-8.2)
[2023-03-31 19:38] LABS: BILIRUBIN, URINE NEGATIVE (negative); BLOOD/HGB, URINE LARGE (Negative); KETONE, URINE NEGATIVE (Negative); LEUK ESTERASE, URINE NEGATIVE (negative); NITRITE, URINE NEGATIVE (negative); PH, URINE 5.5 (5-7)
[2023-03-31 19:49] LABS: EPITHELIAL CELLS, URINE SQUAMOUS 1+ /lpf (0-1+); REFLEX CULTURE, URINE No (No)
[2023-03-31 20:04] LABS: INFLUENZA B NAA NEGATIVE (NEGATIVE); RESPIRATORY SYNCYTIAL VIR NAA NEGATIVE (NEGATIVE)
[2023-03-31] MEDS ORDERED: CEFDINIR300 MG PO (20:27)
[2023-03-31] MEDS ORDERED: ZITHROMAX500 MG PO (20:27)
[2023-03-31] MEDS ORDERED: NEURONTIN100 MG PO (20:27)
--- NOTE | 2023-03-31 20:53 | EKG ---
[facility] [address] [facility] [place] [address] Signed Normal sinus rhythm Low voltage QRS Cannot rule out Anteroseptal infarct , age undetermined Abnormal ECG When compared with ECG of 27-FEB-2023 10:25, Minimal criteria for Anteroseptal infarct are now present T wave inversion now evident in Lateral leads Confirmed by Candice Obando MD () on 03/31/2023 8:53:11 PM Electronically Signed By: CANDICE OBANDO MD 03/31/232052 PATIENT NAME: JAMEL CHRISTINE Electrocardiogram DATE OF : 38 PHYSICIAN: CANDICE OBANDO MD REPORT #: [id number] REPORT IS CONFIDENTIAL AND NOT TO BE RELEASED WITHOUT AUTHORIZATION
[2023-03-31 21:43] VITALS: BP 152/77
== END 2023-03-31 21:43 | disposition home or self-care (01) ==
LOC: ED 18:09
PROVIDERS: Emergency Medicine; Family Medicine
DX: J18.9 Pneumonia, unspecified organism (principal); I10 Essential (primary) hypertension; E03.9 Hypothyroidism, unspecified; I25.2 Old myocardial infarction; Z79.82 Long term (current) use of aspirin; Z79.890 Hormone replacement therapy; Z79.899 Other long term (current) drug therapy; Z11.52 Encounter for screening for COVID-19
CPT/HCPCS: 36415; 70450; 71045; 80053; 81001; 84484; 85025; 85060; 87502; 93005; 93010; 96374; 99285-25; C9803; J0696; U0002

== ENCOUNTER 2023-04-21 10:18 | Emergency (ER) | payer MEDICARE ==
[~2023-04-21] VITALS: Ht 165.1 cm; Wt 63.9 kg
[~2023-04-21 10:18] MED LIST changes: +CALCITONIN-SAL3.7 ML; +CEFDINIR300 MG PO; +GABAPENTIN300 MG PO; +LIDOCAINE1 EACH; +NEURONTIN100 MG PO; +ZITHROMAX500 MG PO
--- OUTSIDE RECORDS SUMMARY | 2023-04-21 10:26 | XMS ---
PreManage Notification: JAMEL CHRISTINE Security Bar Manager Events No recent Security Events currently on file CRITERIA MET - 6 ED Visits in 6 Months - [facility] - 2 Visits in 30 Days CARE PROVIDERS RIGOBERTO ORELLANA Physician Network Strategist 10/09/2020-Current PHONE: Unknown Charisse has no Care Guidelines for this patient. Heike VISIT COUNT (12 MO.) [address] [place] [address] TOTAL 8 NOTE: Visits indicate total known visits. ED/UCC VISIT TRACKING (12 MO.) 04/21/2023 10:18 [facility] [place] TYPE: Emergency COMPLAINT: - ABDOMINAL PAIN 04/07/2023 23:55 [facility] [place] TYPE: Emergency COMPLAINT: - WEAKNESS DIAGNOSES: - Altered mental status, unspecified - Chronic kidney disease, stage 3 unspecified - Hormone replacement therapy - Hypertensive chronic kidney disease with stage 1 through stage 4 chronic kidney disease, or unspecified chronic kidney disease - Hypothyroidism, unspecified - halfway (current) use of aspirin - Other detention (current) drug therapy - Other pancytopenia - Pleurodynia - Right upper quadrant pain - Weakness 03/31/2023 18:09 [facility] [place] TYPE: Emergency COMPLAINT: - WEAKNESS DIAGNOSES: - Encounter for screening for COVID-19 - Essential (primary) hypertension - Hormone replacement therapy - Hypothyroidism, unspecified - halfway (current) use of aspirin - Old myocardial infarction - Other detention (current) drug therapy - Pneumonia, unspecified organism - Weakness 03/04/2023 14:27 [facility] [place] TYPE: Emergency COMPLAINT: - CONSTIPATION DIAGNOSES: - Chronic kidney disease, stage 3 unspecified - Constipation, unspecified - Hormone replacement therapy - Hypertensive chronic kidney disease with stage 1 through stage 4 chronic kidney disease, or unspecified chronic kidney disease - Hypothyroidism, unspecified - halfway (current) use of aspirin - medical terminologist (current) use of opiate analgesic - Other detention (current) drug therapy 02/25/2023 22:34 [facility] [...] chronic kidney disease - Hypothyroidism, unspecified - medical terminologist (current) use of aspirin - Multiple fractures of ribs, left side, initial encounter for closed fracture - Old myocardial infarction - Other detention (current) drug therapy - Unspecified fracture of [...] chronic kidney disease - Hypothyroidism, unspecified - halfway (current) use of aspirin - Old myocardial infarction - Other fall from one level to another, initial encounter - Other detention (current) drug therapy - Pleurodynia 10/21/2022 01:35 [facility] TYPE: Emergency DIAGNOSES: 88605. trauma 10/20/2022 17:36 [facility] [place] TYPE: [...] chronic kidney disease - Hypothyroidism, unspecified - halfway (current) use of aspirin - Old myocardial infarction - Other detention (current) drug therapy - Respiratory failure, unspecified, unspecified whether with hypoxia or hypercapnia - Unspecified place in unspecified non-institutional (private) residence as the place of occurrence of the external cause INPATIENT VISIT TRACKING (12 MO.) 02/27/2023 10:21 [facility] [place] TYPE: Observation COMPLAINT: - AHRF, RIB FX DIAGNOSES: - Acute respiratory failure with hypoxia - Atherosclerotic heart disease of [place] coronary artery with other forms of angina [...] Hypoxemia - Old myocardial infarction - Other detention (current) drug therapy - Other pancytopenia - Thrombocytopenia, unspecified - Unspecified atrial fibrillation - Unspecified fracture of T9-T10 vertebra, initial encounter for closed fracture - Urinary tract infection, site not specified 10/21/2022 01:35 [facility] TYPE: Surgery DIAGNOSES: 25099. Injury, unspecified, initial encounter [email or web address]
[2023-04-21 10:50] LABS: HEMOGLOBIN 10.5 g/dL (12.0-18.0); MCH 29.1 (27-36); MCHC 32.8 g/dl (30-36)
[2023-04-21 10:53] LABS: HEMATOCRIT 32.1 % (35.0-50.0); MCV 88.6 fl (81-99); PLATELET COUNT 61 K/uL (140-440); RBC 3.62 M/ul (4.3-5.7); RDW 16.1 (10.5-15.0)
[2023-04-21 10:59] LABS: BILIRUBIN, URINE NEGATIVE (negative); BLOOD/HGB, URINE SMALL (Negative); KETONE, URINE NEGATIVE (Negative); LEUK ESTERASE, URINE NEGATIVE (negative); NITRITE, URINE POSITIVE (negative); PH, URINE 6.5 (5-7)
[2023-04-21 11:05] LABS: ALBUMIN 3.4 g/dL (3.4-5.0); ALBUMIN/GLOBULIN RATIO 1.03 (1.1-2.4); ANION GAP 14.5 (7-21); BILIRUBIN, TOTAL 1.5 ng/dL (0.2-1.0); BUN/CREATININE RATIO 14.95 (6.0-28.6); CALCIUM 8.8 mg/dL (8.5-10.1); CREATININE, SERUM 1.07 mg/dL (0.55-1.02); POTASSIUM 4.5 mmol/L (3.5-5.1); PROTEIN, TOTAL 6.7 g/dL (6.4-8.2)
[2023-04-21 11:06] LABS: BACTERIA, URINE 1+ /hpf (negative); EPITHELIAL CELLS, URINE SQUAMOUS 1+ /lpf (0-1+)
[2023-04-21 11:07] LABS: REFLEX CULTURE, URINE Yes (No)
[2023-04-21 11:19] LABS: BANDS, MANUAL DIFF 2; LYMPHOCYTES, MANUAL DIFF 35; MONOCYTES, MANUAL DIFF 6; NEUTROPHILS, MANUAL DIFF 57
[2023-04-21 11:25] LABS: INFLUENZA B NAA NEGATIVE (NEGATIVE); RESPIRATORY SYNCYTIAL VIR NAA NEGATIVE (NEGATIVE)
[2023-04-21] MEDS ORDERED: PAXLOVID 150-11 EAC1 PO (11:51)
[2023-04-21 12:18] VITALS: BP 155/68
== END 2023-04-21 12:21 | disposition home or self-care (01) ==
LOC: ED 10:18
PROVIDERS: Emergency Medicine
DX: U07.1 COVID-19 (principal); I12.9 Hypertensive chronic kidney disease with stage 1 through stage 4 chronic kidney disease, or unspecified chronic kidney disease; N18.30 Chronic kidney disease, stage 3 unspecified; E03.9 Hypothyroidism, unspecified; I25.2 Old myocardial infarction; Z79.899 Other long term (current) drug therapy; Z79.890 Hormone replacement therapy; Z79.82 Long term (current) use of aspirin
CPT/HCPCS: 36415; 51702; 71045; 80053; 81001; 85025; 87088; 87502; 99285-25; J7040; U0002

== ENCOUNTER 2023-04-26 17:09 | Emergency (ER) | payer MEDICARE ==
[~2023-04-26] VITALS: Ht 165.1 cm; Wt 63.5 kg
[~2023-04-26 17:09] MED LIST changes: +PAXLOVID 150-11 EAC1 PO
--- OUTSIDE RECORDS SUMMARY | 2023-04-26 17:11 | XMS ---
PreManage Notification: JAMEL CHRISTINE Security Benzene Operator Events No recent Security Events currently on file CRITERIA MET - 6 ED Visits in 6 Months - [facility] - 2 Visits in 30 Days CARE PROVIDERS RIGOBERTO ORELLANA Physician Dredge Worker 10/09/2020-Current PHONE: Unknown Charisse has no Care Guidelines for this patient. Heike VISIT COUNT (12 MO.) [address] [place] [address] TOTAL 9 NOTE: Visits indicate total known visits. ED/UCC VISIT TRACKING (12 MO.) 04/26/2023 17:09 [facility] [place] TYPE: Emergency COMPLAINT: - WEAKNESS 04/21/2023 10:18 [facility] [place] TYPE: Emergency COMPLAINT: - ABDOMINAL PAIN DIAGNOSES: - Chronic kidney disease, stage 3 unspecified - COVID-19 - Hormone replacement therapy - Hypertensive chronic kidney disease with stage 1 through stage 4 chronic kidney disease, or unspecified chronic kidney disease - Hypothyroidism, unspecified - manager terminal (current) use of aspirin - Old myocardial infarction - Other terminal supervisor (current) drug therapy - Weakness 04/07/2023 23:55 [facility] [place] TYPE: Emergency COMPLAINT: - WEAKNESS DIAGNOSES: - Altered mental status, unspecified - Chronic kidney disease, stage 3 unspecified - Hormone replacement therapy - Hypertensive chronic kidney disease with stage 1 through stage 4 chronic kidney disease, or unspecified chronic kidney disease - Hypothyroidism, unspecified - manager terminal (current) use of aspirin - Other detention (current) drug therapy - Other pancytopenia - Pleurodynia - Right upper quadrant pain - Weakness 03/31/2023 18:09 [facility] [place] TYPE: Emergency COMPLAINT: - WEAKNESS DIAGNOSES: - Encounter for screening for COVID-19 - Essential (primary) hypertension - Hormone replacement therapy - Hypothyroidism, unspecified - custodial (current) use of aspirin - Old myocardial [...] chronic kidney disease - Hypothyroidism, unspecified - custodial (current) use of aspirin - custodial (current) use of opiate analgesic - Other terminal supervisor (current) drug therapy 02/25/2023 22:34 [facility] [...] chronic kidney disease - Hypothyroidism, unspecified - custodial (current) use of aspirin - Multiple fractures of ribs, left side, initial encounter for closed fracture - Old myocardial infarction - Other terminal supervisor (current) drug therapy - Unspecified fracture of [...] chronic kidney disease - Hypothyroidism, unspecified - manager terminal (current) use of aspirin - Old myocardial infarction - Other fall from one level to another, initial encounter - Other detention (current) drug therapy - Pleurodynia 10/21/2022 01:35 [facility] TYPE: Emergency DIAGNOSES: 76356. trauma 10/20/2022 17:36 [facility] [place] TYPE: [...] chronic kidney disease - Hypothyroidism, unspecified - manager terminal (current) use of aspirin - Old myocardial [...] with hypoxia - Atherosclerotic heart disease of [place] coronary artery with other forms of angina [...] Hypoxemia - Old myocardial infarction - Other terminal supervisor (current) drug therapy - Other pancytopenia - Thrombocytopenia, unspecified - Unspecified atrial fibrillation - Unspecified fracture of T9-T10 vertebra, initial encounter for closed fracture - Urinary tract infection, site not specified 10/21/2022 01:35 [facility] TYPE: Surgery DIAGNOSES: 41047. Injury, unspecified, initial encounter [email or web address]
[2023-04-26 20:16] LABS: BILIRUBIN, URINE NEGATIVE (negative); BLOOD/HGB, URINE MODERATE (Negative); KETONE, URINE NEGATIVE (Negative); LEUK ESTERASE, URINE SMALL (negative); NITRITE, URINE POSITIVE (negative)
[2023-04-26 20:21] LABS: BACTERIA, URINE 2+ /hpf (negative); CASTS, URINE NONE SEEN \\lpf; CRYSTALS, URINE NONE SEEN (0-1+); EPITHELIAL CELLS, URINE SQUAMOUS 1+ /lpf (0-1+); REFLEX CULTURE, URINE Yes (No); WHITE BLOOD CELLS, URINE >50 /HPF (0-5)
[2023-04-26 20:30] LABS: HEMATOCRIT 36.3 % (35.0-50.0); HEMOGLOBIN 11.8 g/dL (12.0-18.0); MCH 28.7 (27-36); MCHC 32.6 g/dl (30-36); PLATELET COUNT 55 K/uL (140-440); RBC 4.12 M/ul (4.3-5.7); RDW 15.8 (10.5-15.0)
[2023-04-26 20:42] LABS: BANDS, MANUAL DIFF 4; LYMPHOCYTES, MANUAL DIFF 10; MONOCYTES, MANUAL DIFF 19; NEUTROPHILS, MANUAL DIFF 67
[2023-04-26 20:43] LABS: ALBUMIN 3.3 g/dL (3.4-5.0); ALBUMIN/GLOBULIN RATIO 0.75 (1.1-2.4); ANION GAP 15.6 (7-21); BILIRUBIN, TOTAL 1.1 ng/dL (0.2-1.0); CALCIUM 9.3 mg/dL (8.5-10.1); CREATININE, SERUM 1.09 mg/dL (0.55-1.02); POTASSIUM 3.6 mmol/L (3.5-5.1); PROTEIN, TOTAL 7.7 g/dL (6.4-8.2)
[2023-04-26] MEDS ORDERED: CIPRO500 MG PO (20:57)
[2023-04-26 21:26] VITALS: BP 172/70
== END 2023-04-26 22:02 | disposition home or self-care (01) ==
LOC: ED 17:09
PROVIDERS: Family Medicine
DX: N39.0 Urinary tract infection, site not specified (principal); S92.352A Displaced fracture of fifth metatarsal bone, left foot, initial encounter for closed fracture; I12.9 Hypertensive chronic kidney disease with stage 1 through stage 4 chronic kidney disease, or unspecified chronic kidney disease; E11.22 Type 2 diabetes mellitus with diabetic chronic kidney disease; N18.30 Chronic kidney disease, stage 3 unspecified; I25.2 Old myocardial infarction; W06.XXXA Fall from bed, initial encounter; Z79.899 Other long term (current) drug therapy; Z79.890 Hormone replacement therapy; Z79.82 Long term (current) use of aspirin
CPT/HCPCS: 36415; 70450; 73610; 73630; 80053; 81001; 85025; 87088; 99284-25; J7040

== ENCOUNTER 2023-05-06 20:28 | Emergency (ER) | payer MEDICARE ==
[~2023-05-06] VITALS: Ht 165.1 cm; Wt 62.9 kg
--- NOTE | ~2023-05-06 | EKG ---
[facility] [address] [facility] [place], [place] [address] Draft EK completed, results pending confirmation PATIENT NAME: JAMEL CHRISTINE Electrocardiogram DATE OF : 38 PHYSICIAN: PRELIMINARY REPORT #: [id number] REPORT IS CONFIDENTIAL AND NOT TO BE RELEASED WITHOUT AUTHORIZATION
[~2023-05-06 20:28] MED LIST changes: +CIPRO500 MG PO
--- OUTSIDE RECORDS SUMMARY | 2023-05-06 20:31 | XMS ---
PreManage Notification: JAMEL CHRISTINE Security Accounting Generalist Events No recent Security Events currently on file CRITERIA MET - 6 ED Visits in 6 Months - [facility] - 2 Visits in 30 Days CARE PROVIDERS RIGOBERTO ORELLANA Physician Assistant Shift Supervisor 10/09/2020-Current PHONE: Unknown Charisse has no Care Guidelines for this patient. Heike VISIT COUNT (12 MO.) [address] [place] [address] TOTAL 10 NOTE: Visits indicate total known visits. ED/UCC VISIT TRACKING (12 MO.) 05/06/2023 20:29 [facility] [place] TYPE: Emergency COMPLAINT: - ALTERED LOC 04/26/2023 17:09 [facility] [place] TYPE: Emergency COMPLAINT: - WEAKNESS DIAGNOSES: - Chronic kidney disease, stage 3 unspecified - Displaced fracture of fifth metatarsal bone, left foot, initial encounter for closed fracture - Fall from bed, initial encounter - Hormone replacement therapy - Hypertensive chronic kidney disease with stage 1 through stage 4 chronic kidney disease, or unspecified chronic kidney disease - [facility] (current) use of aspirin - Old myocardial infarction - Other terminal operator (current) drug therapy - Pain in left foot - Type 2 diabetes mellitus with diabetic chronic kidney disease - Urinary tract infection, site not specified 04/21/2023 10:18 [facility] [place] TYPE: Emergency COMPLAINT: - ABDOMINAL PAIN DIAGNOSES: - Chronic kidney disease, stage 3 unspecified - COVID-19 - Hormone replacement therapy - Hypertensive chronic kidney disease with stage 1 through stage 4 chronic kidney disease, or unspecified chronic kidney disease - Hypothyroidism, unspecified - regional intermodal truck driver (current) use of aspirin - Old myocardial infarction - Other senior living (current) drug therapy - Weakness 04/07/2023 23:55 [facility] [place] TYPE: Emergency COMPLAINT: - WEAKNESS DIAGNOSES: - Altered mental status, unspecified - Chronic kidney disease, stage 3 unspecified - Hormone replacement therapy - Hypertensive chronic kidney disease with stage 1 through stage 4 chronic kidney disease, or unspecified chronic kidney disease - Hypothyroidism, unspecified - regional intermodal truck driver (current) use of aspirin - Other senior living (current) drug therapy - Other pancytopenia - Pleurodynia - Right upper quadrant pain - Weakness 03/31/2023 18:09 [facility] [place] TYPE: Emergency COMPLAINT: - WEAKNESS DIAGNOSES: - Encounter for screening for COVID-19 - Essential (primary) hypertension - Hormone replacement therapy - Hypothyroidism, unspecified - [facility] (current) use of aspirin - Old myocardial infarction - Other terminal operator (current) drug therapy - Pneumonia, unspecified organism - Weakness 03/04/2023 14:27 [facility] [place] TYPE: Emergency COMPLAINT: - CONSTIPATION DIAGNOSES: - Chronic kidney disease, stage 3 unspecified - Constipation, unspecified - Hormone replacement therapy - Hypertensive chronic kidney disease with stage 1 through stage 4 chronic kidney disease, or unspecified chronic kidney disease - Hypothyroidism, unspecified - [facility] (current) use of aspirin - regional intermodal truck driver (current) use of opiate analgesic - Other terminal operator (current) drug therapy 02/25/2023 22:34 [facility] [...] chronic kidney disease - Hypothyroidism, unspecified - regional intermodal truck driver (current) use of aspirin - Multiple fractures of ribs, left side, initial encounter for closed fracture - Old myocardial infarction - Other terminal operator (current) drug therapy - Unspecified fracture [...] chronic kidney disease - Hypothyroidism, unspecified - [facility] (current) use of aspirin - Old myocardial infarction - Other fall from one level to another, initial encounter - Other terminal operator (current) drug therapy - Pleurodynia 10/21/2022 01:35 [facility] TYPE: Emergency DIAGNOSES: 10862. trauma 10/20/2022 17:[address] [facility] [place] TYPE: Emergency COMPLAINT: - NECK INJURY [...] chronic kidney disease - Hypothyroidism, unspecified - [facility] (current) use of aspirin - Old myocardial infarction - Other senior living (current) drug therapy - Respiratory failure, unspecified, unspecified whether with hypoxia or hypercapnia - Unspecified place in unspecified non-institutional (private) residence as the place of occurrence of the external cause INPATIENT VISIT TRACKING (12 MO.) 02/27/2023 10:21 [facility] TYPE: Observation COMPLAINT: - AHRF, RIB FX DIAGNOSES: - Acute respiratory failure with hypoxia - Atherosclerotic heart disease of [place] coronary artery with other forms of angina [...] - Old myocardial infarction - Other terminal operator (current) drug therapy - Other pancytopenia - Thrombocytopenia, unspecified - Unspecified atrial fibrillation - Unspecified fracture of T9-T10 vertebra, initial encounter for closed fracture - Urinary tract infection, site not specified 10/21/2022 01:35 [facility] TYPE: Surgery DIAGNOSES: 65436. Injury, unspecified, initial encounter [email or web address]
[2023-05-06 21:03] LABS: BILIRUBIN, URINE NEGATIVE (negative); BLOOD/HGB, URINE NEGATIVE (Negative); KETONE, URINE NEGATIVE (Negative); LEUK ESTERASE, URINE NEGATIVE (negative); NITRITE, URINE NEGATIVE (negative)
[2023-05-06] MEDS ORDERED: LACTATED RINGER'S 1,000 ML IV ONE (21:15)
[2023-05-06 21:19] LABS: ALBUMIN 2.6 g/dL (3.4-5.0); ALBUMIN/GLOBULIN RATIO 0.6 (1.1-2.4); ANION GAP 16.4 (7-21); BASOPHILS 5.8 % (0-2); BILIRUBIN, TOTAL 0.6 ng/dL (0.2-1.0); BUN/CREATININE RATIO 16.36 (6.0-28.6); CALCIUM 9.1 mg/dL (8.5-10.1); CREATININE, SERUM 1.1 mg/dL (0.55-1.02); EOSINOPHILS 1.2 % (0-6); HEMATOCRIT 33.8 % (35.0-50.0); HEMOGLOBIN 10.8 g/dL (12.0-18.0); LYMPHOCYTES 18.5 % (24-44); MCH 27.4 (27-36); MCV 85.8 fl (81-99); NEUTROPHILS 59.5 % (39-80); PLATELET COUNT 140 K/uL (140-440); POTASSIUM 4.4 mmol/L (3.5-5.1); PROTEIN, TOTAL 6.9 g/dL (6.4-8.2); RBC 3.94 M/ul (4.3-5.7); RDW 16.6 (10.5-15.0)
[2023-05-06 21:24] LABS: LACTIC ACID, BLOOD 1.9 mmol/L (0.4-2.0)
[2023-05-06 21:25] LABS: INR 1.09 (0.80-1.30); PROTIME 13.4 Sec (11.2-14.2)
[2023-05-06] MEDS ORDERED: LORazepam 2 MG/ML VIAL IV ONE (21:30)
[2023-05-06 21:50] LABS: INFLUENZA B NAA NEGATIVE (NEGATIVE); RESPIRATORY SYNCYTIAL VIR NAA NEGATIVE (NEGATIVE)
[2023-05-06 22:19] LABS: AMPHETAMINES, URINE NEGATIVE (NEGATIVE); BARBITURATES, URINE NEGATIVE (NEGATIVE); BENZODIAZEPINE, URINE NEGATIVE (NEGATIVE); BUPRENORPHINE, URINE NEGATIVE (NEGATIVE); CANNABINOID, URINE NEGATIVE (NEGATIVE); COCAINE, URINE NEGATIVE (NEGATIVE); ECSTASY, URINE NEGATIVE (NEGATIVE); FENTANYL, URINE NEGATIVE (NEGATIVE); METHADONE, URINE NEGATIVE (NEGATIVE); OPIATES, URINE NEGATIVE (NEGATIVE); OXYCODONE, URINE NEGATIVE (NEGATIVE); PHENCYCLIDINE, URINE NEGATIVE (NEGATIVE)
[2023-05-06] MEDS ORDERED: ATIVAN0.5 MG PO (22:55)
[2023-05-06] MEDS ORDERED: LORazepam 1 MG HOME.PACK PO ONE (23:15)
[2023-05-06 23:24] VITALS: BP 172/90
--- NOTE | 2023-05-07 12:38 | EKG ---
[facility] [address] [facility] [place], [place] [address] Signed Normal sinus rhythm Left axis deviation Low voltage QRS Possible Inferior infarct , age undetermined Cannot rule out Anteroseptal infarct (cited on or before 31-MAR-2023) Abnormal ECG When compared with ECG of 06-MAY-2023 20:58, (Unconfirmed) No significant change was found Confirmed by DOMINICK SCHULTZ MD ([id number]) on 05/07/2023 12:38:00 PM Electronically Signed By: DOMINICK SCHULTZ 05/07/23 1238 PATIENT NAME: JAMEL CHRISTINE Electrocardiogram DATE OF : 38 PHYSICIAN: DOMINICK SCHULTZ REPORT #: [id number] REPORT IS CONFIDENTIAL AND NOT TO BE RELEASED WITHOUT AUTHORIZATION
== END 2023-05-06 23:27 | disposition home or self-care (01) ==
LOC: ED 20:28
PROVIDERS: Family Medicine
DX: B34.9 Viral infection, unspecified (principal); F05 Delirium due to known physiological condition; I12.9 Hypertensive chronic kidney disease with stage 1 through stage 4 chronic kidney disease, or unspecified chronic kidney disease; N18.30 Chronic kidney disease, stage 3 unspecified; I25.2 Old myocardial infarction; E03.9 Hypothyroidism, unspecified; Z79.899 Other long term (current) drug therapy; Z11.52 Encounter for screening for COVID-19
CPT/HCPCS: 36415; 51701; 70450; 71045; 80053; 80307; 81003; 83605; 85025; 85610; 87040; 87502; 93005; 93010; 99285-25; J2060; J7121; U0002